=== PATIENT | female | born 1965 | race African-American/Black ===

== ENCOUNTER 2016-12-13 16:14 | Emergency (ER) | payer BC, OTHER ==
[2016-12-13 17:06] VITALS: BP 152/71
[2016-12-13] MEDS ORDERED: Albuterol/Ipratropium NEB.SOL* Albuterol 2.5 MG/Ipratropium 0.5 MG 3 ML INH ONE (17:30)
--- NOTE | 2016-12-13 17:30 | UC ---
Throat Pain/Nasal Javier HPI - HPI Summary HPI Summary: complaint of nasal congestion and cough that started approx 7 days ago productive cough with thick sputum coughing which is worse at night sometimes she hears wheezing at night bilateral ear pain sore throat denies fever but has had chills taking mucinex without much relief - History of Current Complaint Chief Complaint: UCRespiratory Stated Complaint: UPPER RESPIRATORY COMPLAINT Time Seen by Provider: 12/13/16 17:20 Hx Obtained From: Patient Hx Last Menstrual Period: 2005 - Allergies/Home Medications Allergies/Adverse Reactions: Allergies Allergy/AdvReac Type Severity Reaction Status Date / Time Adhesive Tape Allergy Intermediate Rash Verified 12/13/16 17:06 Lisinopril AdvReac Intermediate Coughing Verified 12/13/16 17:06 PMH/Surg Hx/FS Hx/Imm Hx Previously Healthy: Yes Endocrine History Of: Reports: Diabetes - type 2--diet controlled., Thyroid Disease - Slightly enlarged -goiter, Dyslipidemia Denies: Hyperthyroidism, Hypothyroidism Cardiovascular History Of: Reports: Hypertension - on meds Denies: Cardiac Disorders - high cholesterol, Pacemaker/ICD, Myocardial Infarction, Congestive Heart Failure, Atrial Fibrillation, Deep Vein Thrombosis , Bleeding Disorders Respiratory History Of: Denies: COPD, Asthma, Bronchitis, Pneumonia, Pulmonary Embolism GI/ History Of: Denies: Gastroesophageal Reflux, Ulcer, Gastrointestinal Bleed, Gall Bladder Disease, Kidney Stones, Diverticulitis, Renal Disease, Urosepsis Neurological History Of: Denies: TIA, CVA, Dementia, Seizures, Migraine Psychological History Of: Reports: Anxiety - occassionally, Depression - No medications. Denies: Bipolar Disorder, Schizophrenia, Post Traumatic Stress Disorder Cancer History Of: Denies: Lung Cancer, Colorectal Cancer, Breast Cancer, Prostate Cancer, Cervical Cancer Other History Of: Negative For: HIV, Hepatitis B, Hepatitis C, Anticoagulant Therapy - Surgical History Surgical History: Yes Surgery Procedure, Year, and Place: C section x 2, Hand Surgery x 2: L ligaments and Rt HAND tendon repair, Gastric Banding 2005, Hysterectomy 2007. left shoulder sx 2015 - Family History Known Family History: Positive: Cardiac Disease, Hypertension, Diabetes - Social History Occupation: Employed Full-time Lives: With Family Alcohol Use: None Substance Use Type: None Substance Use Comment - Amount & Last Used: 16 Smoking Status (MU): Never Smoked Tobacco Type: Cigarettes Length of Time of Smoking/Using Tobacco: SMOKED FOR ~1 MONTH IN THE '90S Have You Smoked in the Last Year: No - Immunization History Most Recent Influenza Vaccination: refuses Most Recent Tetanus Shot: up to date Most Recent Pneumonia Vaccination: refuses Vaccination Up to Date: Yes Review of Systems Constitutional: Chills Skin: Negative Eyes: Negative ENT: Sore Throat, Ear Ache, Nasal Discharge Respiratory: Cough Cardiovascular: Negative Gastrointestinal: Negative Genitourinary: Negative Motor: Negative Neurovascular: Negative Musculoskeletal: Negative Neurological: Headache Psychological: Negative All Other Systems Reviewed And Are Negative: Yes Physical Exam Triage Information Reviewed: Yes Appearance: No Pain Distress, Well-Nourished, Obese Vital Signs: Initial Vital Signs Temp 98.1 F 12/13/16 17:01 Pulse 83 12/13/16 17:01 Resp 20 12/13/16 17:01 BP 152/71 12/13/16 17:01 Pulse Ox 100 12/13/16 17:01 Vital Signs Reviewed: Yes Eyes: Positive: Conjunctiva Clear ENT: Positive: Pharyngeal erythema, Nasal congestion, Nasal drainage, TM bulging , Other: - frontal sinus tenderness. Negative: TM red Neck: Positive: No Lymphadenopathy Respiratory: Positive: No respiratory distress, No accessory muscle use, Rhonchi - LLL, Wheezing - throughout Cardiovascular: Positive: RRR, No Murmur, Pulses Normal Abdomen Description: Positive: Nontender, Soft Bowel Sounds: Positive: Present Musculoskeletal: Positive: No Edema Neurological: Positive: Alert Psychological Exam: Normal Skin Exam: Normal Re-Evaluation - Re-Evaluation First Eval Re-Evaluation Time: 18:00 Change: Improved - less wheezing Throat Pain/Nasal Course/Dx - Differential Dx/Diagnosis Differential Diagnosis/HQI/PQRI: Sinusitis, URI, Other - bronchitis Provider Diagnoses: bronchitis Discharge - Discharge Plan Condition: Stable Disposition: HOME Prescriptions: Albuterol HFA INHALER* [Ventolin HFA Inhaler*] 2 puff INH Q4H PRN #1 mdi PRN Reason: Cough Azithromycin TAB* [Zithromax TAB (Z-KATHRIN) 250 mg #6 tabs] 2 tab PO .TODAY, THEN 1 DAILY #1 kathrin Patient Education Materials: Acute Bronchitis (ED) Referrals: Ashlee Negron MD [Primary Care Provider] - Additional Instructions: Please take antibiotic as directed Use your albuterol inhaler every 4-6 hours when needed for wheezing, shortness of breath or uncontrolled coughing. Increase fluids and rest Take acetaminophen or ibuprofen for fever or pain Please review your discharge instructions. If your symptoms do not improve please call your primary care provider or return to urgent care.
== END 2016-12-13 18:14 | disposition home or self-care (01) ==
LOC: UCEAST 16:14
DX: J40 Bronchitis, not specified as acute or chronic (principal); Z98.84 Bariatric surgery status
CPT/HCPCS: 99212; A9270-GY; G0463

== ENCOUNTER 2017-03-12 21:11 | Emergency (ER) | payer BC, OTHER ==
[2017-03-12 21:53] VITALS: BP 153/81
--- NOTE | 2017-03-12 22:15 | UC ---
Dental HPI - HPI Summary HPI Summary: "C/o left upper dental pain x1 week. " has had a dental infection before and thinks she has one again today. she was in [place] today singing. left cheek is swollen. no fevers. no chills. has a dentist in [place]. - History of Current Complaint Chief Complaint: UCDentalProblem Stated Complaint: DENTAL Time Seen by Provider: 03/12/17 22:14 Hx Last Menstrual Period: 2005 - Allergies/Home Medications Allergies/Adverse Reactions: Allergies Allergy/AdvReac Type Severity Reaction Status Date / Time Adhesive Tape Allergy Intermediate Rash Verified 03/12/17 21:40 Lisinopril AdvReac Intermediate Coughing Verified 03/12/17 21:40 Home Medications: Home Medications Acetaminophen TAB* [Tylenol TAB*] 650 mg PO ONCE PRN 03/12/17 [History Confirmed 03/12/17] Ibuprofen TAB* [Motrin TAB* 800 MG] 800 mg PO ONCE PRN 03/12/17 [History Confirmed 03/12/17] Naproxen TAB* [Naprosyn 250 mg TAB*] 500 mg PO ONCE PRN 03/12/17 [History Confirmed 03/12/17] PMH/Surg Hx/FS Hx/Imm Hx Previously Healthy: Yes Endocrine History: Diabetes Cardiovascular History: Hypertension Other History Of: Negative For: HIV, Hepatitis B, Hepatitis C, Anticoagulant Therapy - Surgical History Surgical History: Yes Surgery Procedure, Year, and Place: C section x 2, Hand Surgery x 2: L ligaments and Rt HAND tendon repair, Gastric Banding 2005, Hysterectomy 2007. left shoulder sx 2015 - Family History Known Family History: Positive: Cardiac Disease, Hypertension, Diabetes - Social History Alcohol Use: None Substance Use Type: None Substance Use Comment - Amount & Last Used: 16 Smoking Status (MU): Never Smoked Tobacco Type: Cigarettes Length of Time of Smoking/Using Tobacco: SMOKED FOR ~1 MONTH IN THE '90S Have You Smoked in the Last Year: No - Immunization History Most Recent Influenza Vaccination: refuses Most Recent Tetanus Shot: up to date Most Recent Pneumonia Vaccination: refuses Vaccination Up to Date: Yes Review of Systems Constitutional: Negative Skin: Negative Eyes: Negative ENT: Dental Pain Respiratory: Negative Cardiovascular: Negative Gastrointestinal: Negative Genitourinary: Negative Motor: Negative Neurovascular: Negative Musculoskeletal: Negative Neurological: Negative Psychological: Negative All Other Systems Reviewed And Are Negative: Yes Physical Exam Triage Information Reviewed: Yes Appearance: Well-Appearing, No Pain Distress, Well-Nourished Vital Signs: Initial Vital Signs Temp 98.6 F 03/12/17 21:43 Pulse 83 03/12/17 21:43 Resp 16 03/12/17 21:43 BP 153/81 03/12/17 21:43 Pulse Ox 99 03/12/17 21:43 Vital Signs Reviewed: Yes Eye Exam: Normal ENT Exam: Other - mild-mod generalized swelling of left cheek. ENT: Positive: Pharynx normal, TMs normal. Negative: Pharyngeal erythema Dental: Positive: Abscess @ - left 2nd to last molar. Negative: Cervical Lymphadenopathy Neck exam: Normal Neck: Positive: Supple, Nontender, No Lymphadenopathy Respiratory Exam: Normal Respiratory: Positive: Lungs clear, Normal breath sounds Cardiovascular Exam: Normal Cardiovascular: Positive: RRR, No Murmur, Pulses Normal Abdominal Exam: Normal Abdomen Description: Positive: Soft Musculoskeletal Exam: Normal Neurological Exam: Normal Psychological Exam: Normal Skin Exam: Normal Dental Complaint Course/Dx - Course Course Of Treatment: make sure to take a probiotic every day while on the abx to prevent c diff. - Differential Dx/Diagnosis Differential Diagnosis/Dx: Dental Abscess, Dental Caries Provider Diagnoses: left upper molar dental abscess Discharge - Discharge Plan Condition: Stable Disposition: HOME Prescriptions: Amoxicillin (*) [Amoxicillin 875 MG (*)] 875 mg PO BID #20 tab Patient Education Materials: Dental Abscess (ED) Referrals: Ashlee Negron MD [Primary Care Provider] - Additional Instructions: Follow up with a dentist in 2-3 days. You should not be taking ibuprofen and naproxyn at the same time.
[2017-03-12] MEDS ORDERED: Amoxicillin CAP* 500 MG PO ONE (22:19)
== END 2017-03-12 22:37 | disposition home or self-care (01) ==
LOC: UCCORT 21:11
DX: K04.7 Periapical abscess without sinus (principal); E11.9 Type 2 diabetes mellitus without complications; I10 Essential (primary) hypertension; Z98.84 Bariatric surgery status; Z90.710 Acquired absence of both cervix and uterus; Z88.8 Allergy status to other drugs, medicaments and biological substances; Z91.048 Other nonmedicinal substance allergy status; Z87.891 Personal history of nicotine dependence
CPT/HCPCS: 99212; A9270-GY; G0463

== ENCOUNTER 2017-04-13 18:39 | Emergency (ER) | payer BC ==
[2017-04-13 19:47] VITALS: BP 126/78
--- NOTE | 2017-04-13 20:06 | UC ---
Lower Extremity/Ankle HPI - HPI Summary HPI Summary: 4-5 DAYS OF PAIN TOP OF LEFT FOOT. NO TRAUMA. HAS UNCONTROLLED DM AND IS ON GABAPENTIN FOR NEUROPATHY BUT PT STATES THAT THIS FEELS DIFFERENT. PAIN WITH AMBULATION. PAIN RADIATES UP HER LEG. DROPPED A 2 L BOTTLE OF POP ON HER FOOT A FEW DAYS BEFORE ONSET OF SX. - History of Current Complaint Chief Complaint: UCLowerExtremity Stated Complaint: FOOT PAIN Time Seen by Provider: 04/13/17 19:59 Hx Obtained From: Patient Hx Last Menstrual Period: hysterectomy 2007 Onset/Duration: Gradual Onset, Lasting Days, Still Present Severity Initially: Moderate Severity Currently: Moderate Pain Intensity: 7 Pain Scale Used: 0-10 Numeric Aggravating Factor(s): Ambulation Alleviating Factor(s): Rest Able to Bear Weight: Yes - Allergies/Home Medications Allergies/Adverse Reactions: Allergies Allergy/AdvReac Type Severity Reaction Status Date / Time Adhesive Tape Allergy Intermediate Rash Verified 04/13/17 19:47 Lisinopril AdvReac Intermediate Coughing Verified 04/13/17 19:47 Home Medications: Home Medications Atorvastatin* [Lipitor*] 40 mg PO 1700 04/13/17 [History Confirmed 04/13/17] Gabapentin CAP(*) [Neurontin 400 mg CAP(*)] 800 mg PO BID 04/13/17 [History Confirmed 04/13/17] PMH/Surg Hx/FS Hx/Imm Hx - Additional Past Medical History Additional PMH: SLEEP APNEA Endocrine History: Diabetes, Dyslipidemia Cardiovascular History: Hypertension Other History Of: Negative For: HIV, Hepatitis B, Hepatitis C, Anticoagulant Therapy - Surgical History Surgical History: Yes Surgery Procedure, Year, and Place: C section x 2, Hand Surgery x 2: L ligaments and Rt HAND tendon repair, Gastric Banding 2005, Hysterectomy 2007. left shoulder sx 2016 - Family History Known Family History: Positive: Cardiac Disease, Hypertension, Diabetes - Social History Alcohol Use: None Substance Use Type: None Substance Use Comment - Amount & Last Used: 16 Smoking Status (MU): Never Smoked Tobacco Type: Cigarettes Length of Time of Smoking/Using Tobacco: SMOKED FOR ~1 MONTH IN THE '90S Have You Smoked in the Last Year: No - Immunization History Most Recent Influenza Vaccination: refuses Most Recent Tetanus Shot: up to date Most Recent Pneumonia Vaccination: refuses Vaccination Up to Date: Yes Review of Systems Constitutional: Negative Skin: Negative Respiratory: Negative Cardiovascular: Negative Gastrointestinal: Negative Musculoskeletal: Arthralgia All Other Systems Reviewed And Are Negative: Yes Physical Exam Triage Information Reviewed: Yes Appearance: Well-Appearing, No Pain Distress, Well-Nourished, Obese Vital Signs: Initial Vital Signs Temp 97.9 F 04/13/17 19:43 Pulse 75 04/13/17 19:43 Resp 20 04/13/17 19:43 BP 126/78 04/13/17 19:43 Pulse Ox 100 04/13/17 19:43 Vital Signs Reviewed: Yes Eyes: Positive: Conjunctiva Clear ENT: Positive: Hearing grossly normal Neck: Positive: Supple Respiratory: Positive: No respiratory distress, No accessory muscle use Cardiovascular: Positive: Pulses Normal Abdomen Description: Positive: Soft Musculoskeletal: Positive: ROM Intact, No Edema, Other: - TTP BRIDGE OF LEFT FOOT Neurological: Positive: Alert Psychological: Positive: Age Appropriate Behavior Skin: Negative: rashes Diagnostics - Radiology LEFT FOOT XRAY Xray Interpretation: Positive (See Comments) - Probable stress related change involving the second metatarsal Radiology Interpretation Completed By: Radiologist Lower Extremity Course/Dx - Differential Dx/Diagnosis Provider Diagnoses: LEFT FOOT PAIN/FALLEN ARCHES Discharge - Discharge Plan Condition: Stable Disposition: HOME Patient Education Materials: Foot Sprain (ED) Referrals: Ashlee Negron MD [Primary Care Provider] - If Needed Additional Instructions: XRAY SHOWS: Probable stress related change involving the second metatarsal. NO FRACTURE Fallen arches - a change in the tibial tendon that normally provides stability for walking and support for the foot's arch. Ongoing pain along the inside of the foot and ankle Injuries to this tendon are among the most common foot and ankle problems. They may occur over time with wear and tear, with overuse during high-impact sports, or during a fall. Obesity, diabetes, high blood pressure and steroid injections can increase the risk of tibial tendon dysfunction. Fallen arches are more common in adults over 40, and affect women more often than men. Symptoms include swelling on the inside of the ankle, pain that worsens with activity or walking on uneven ground, difficulty walking or standing for long periods and, eventually, pain on the outside of the ankle due to the heel bone shifting outward. Diagnosis requires a physical exam and often includes X-rays or other imaging. Treatment depends on the extent of the tendon problem. The goal is to reduce pain, stabilize the foot and prevent additional changes to the foot's integrity. Conservative treatment choices include: -Stopping or decreasing activities that aggravate foot pain. -Applying cold packs to the painful area three or four times a day for up to 20 minutes each time. -Taking nonsteroidal anti-inflammatory medications, such as ibuprofen (Advil , Motrin IB, others) or naproxen (Aleve, others) to reduce pain and inflammation. -Losing weight and participating in low-impact physical activities. -Wearing a short leg cast or walking boot to stabilize the tendon. -Wearing orthotics to control the foot position. PODIATRY IN [facility] Dr. Augusto Morgan [address] [place] [address] [place]. Please call his office at [phone] to make an appointment to be seen Dr. Pascual Morris. Please call his office at [phone] to make an appointment to be seen
--- NOTE | 2017-04-13 20:40 | RAD ---
Indication: Left foot pain. 3 views of left foot demonstrates periosteal reaction involving the second metatarsal. Stress-related change cannot BE excluded. No fracture is noted. IMPRESSION: Probable stress related change involving the second metatarsal.
== END 2017-04-13 20:59 | disposition home or self-care (01) ==
LOC: UCEAST 18:39
DX: M21.42 Flat foot [pes planus] (acquired), left foot (principal); M79.672 Pain in left foot; E11.9 Type 2 diabetes mellitus without complications; I10 Essential (primary) hypertension
CPT/HCPCS: 99212; G0463

== ENCOUNTER 2017-04-15 15:40 | Emergency (ER) | payer BC ==
[2017-04-15 15:50] VITALS: BP 131/74
--- NOTE | 2017-04-15 15:55 | UC ---
Lower Extremity/Ankle HPI - HPI Summary HPI Summary: 51 year old presents with complains of left plantar fasciitis pain. A Xray of her left foot was done at [facility] and was negative for fractures per patient. - History of Current Complaint Chief Complaint: UCLowerExtremity Stated Complaint: RE-CHECK LEFT FOOT Time Seen by Provider: 04/15/17 15:51 Hx Last Menstrual Period: hysterectomy 2007 Onset/Duration: Gradual Onset - Allergies/Home Medications Allergies/Adverse Reactions: Allergies Allergy/AdvReac Type Severity Reaction Status Date / Time Adhesive Tape Allergy Intermediate Rash Verified 04/15/17 15:50 Lisinopril AdvReac Intermediate Coughing Verified 04/15/17 15:50 PMH/Surg Hx/FS Hx/Imm Hx Other History Of: Negative For: HIV, Hepatitis B, Hepatitis C, Anticoagulant Therapy - Surgical History Surgical History: Yes Surgery Procedure, Year, and Place: C section x 2, Hand Surgery x 2: L ligaments and Rt HAND tendon repair, Gastric Banding 2005, Hysterectomy 2007. left shoulder sx 2015 - Family History Known Family History: Positive: Cardiac Disease, Hypertension, Diabetes - Social History Alcohol Use: None Substance Use Type: None Substance Use Comment - Amount & Last Used: 16 Smoking Status (MU): Never Smoked Tobacco Type: Cigarettes Length of Time of Smoking/Using Tobacco: SMOKED FOR ~1 MONTH IN THE '90S Have You Smoked in the Last Year: No - Immunization History Most Recent Influenza Vaccination: refuses Most Recent Tetanus Shot: up to date Most Recent Pneumonia Vaccination: refuses Vaccination Up to Date: Yes Review of Systems Constitutional: Negative Skin: Negative Eyes: Negative ENT: Negative Respiratory: Negative Cardiovascular: Negative Gastrointestinal: Negative Genitourinary: Negative Motor: Negative Neurovascular: Negative Musculoskeletal: Myalgia, Other: - LEFT PLANTAR LIGAMENT PAIN Neurological: Negative Psychological: Negative All Other Systems Reviewed And Are Negative: Yes Physical Exam Triage Information Reviewed: Yes Vital Signs: Initial Vital Signs Temp 36.9 C 04/15/17 15:43 Pulse 73 04/15/17 15:43 Resp 16 04/15/17 15:43 BP 131/74 04/15/17 15:43 Pulse Ox 99 04/15/17 15:43 Eye Exam: Normal ENT Exam: Normal Dental Exam: Normal Neck exam: Normal Neck: Positive: 1 Respiratory Exam: Normal Cardiovascular Exam: Normal Abdominal Exam: Normal Musculoskeletal: Positive: Other: - LEFT PLANTAR LIGAMENT TENDERNESS Neurological Exam: Normal Psychological Exam: Normal Skin Exam: Normal Lower Extremity Course/Dx - Differential Dx/Diagnosis Provider Diagnoses: LEFT PLANTAR LIGAMENT INFLAMATION Discharge - Discharge Plan Condition: Stable Disposition: HOME Prescriptions: Methylprednisolone [Medrol Dosepak 4 MG*] 4 mg PO .SEE KATHRIN INSTRUCTION #21 tab Patient Education Materials: Plantar Fasciitis Exercises (GEN), Plantar Fasciitis (ED) Referrals: Ashlee Negron MD [Primary Care Provider] - If Needed
== END 2017-04-15 16:10 | disposition home or self-care (01) ==
LOC: UCCORT 15:40
DX: M72.2 Plantar fascial fibromatosis (principal); Z88.8 Allergy status to other drugs, medicaments and biological substances
CPT/HCPCS: 99212; G0463

== ENCOUNTER 2017-06-16 21:10 | Emergency (ER) | payer BC ==
[2017-06-16 21:30] VITALS: BP 144/68
--- NOTE | 2017-06-16 21:56 | UC ---
Abdominal Pain Female HPI - HPI Summary HPI Summary: 51 yo female with epigastric and LUQ abd pain x about 4 days constant no n/v a couple of episodes of diarrhea no f/c has chronic left pectorial muscle tightness for which she goes to PT, it has been unchanged no f/c no cough or shortness of breath known gallstones - History of Current Complaint Chief Complaint: UCAbdominalPain Stated Complaint: ABD & CHEST/SHOULDER PAIN Time Seen by Provider: 06/16/17 21:39 Hx Obtained From: Patient Hx Last Menstrual Period: hysterectomy 2007 Onset/Duration: Gradual Onset, Lasting Days Timing: Constant Severity Initially: Mild Severity Currently: Moderate Pain Intensity: 4 Pain Scale Used: 0-10 Numeric Location: Discrete At: LUQ, Epigastric Radiates: No Character: Burning, Cramping Aggravating Factor(s): Nothing Alleviating Factor(s): Nothing Associated Signs and Symptoms: Positive: Chest Pain - left pectoral tightness, Diarrhea - x2. Negative: Diaphoresis, Fever, Cough, Dizzy, Back Pain, Constipation, Blood in Stool, Urinary Symptoms, Decreased Appetite, Vaginal Bleeding, Vaginal Discharge, Nausea, Vomiting Allergies/Adverse Reactions: Allergies Allergy/AdvReac Type Severity Reaction Status Date / Time Adhesive Tape Allergy Intermediate Rash Verified 06/16/17 21:17 Lisinopril AdvReac Intermediate Coughing Verified 06/16/17 21:17 Home Medications: Home Medications Gabapentin CAP(*) [Neurontin 300 CAP(*)] 300 mg PO DAILY 06/16/17 [History Confirmed 06/16/17] metFORMIN* [Glucophage 500 MG TAB *] 500 mg PO BID 06/16/17 [History Confirmed 06/16/17] PMH/Surg Hx/FS Hx/Imm Hx Previously Healthy: Yes Endocrine History: Diabetes, Dyslipidemia Cardiovascular History: Hypertension Other History Of: Negative For: HIV, Hepatitis B, Hepatitis C, Anticoagulant Therapy - Surgical History Surgical History: Yes Surgery Procedure, Year, and Place: C section x 2, Hand Surgery x 2: L ligaments and Rt HAND tendon repair, Gastric Banding 2005, Hysterectomy 2007. left shoulder sx 2015 - Family History Known Family History: Positive: Cardiac Disease, Hypertension, Diabetes - Social History Alcohol Use: None Substance Use Type: None Substance Use Comment - Amount & Last Used: 16 Smoking Status (MU): Never Smoked Tobacco Type: Cigarettes Length of Time of Smoking/Using Tobacco: SMOKED FOR ~1 MONTH IN THE '90S Have You Smoked in the Last Year: No - Immunization History Most Recent Influenza Vaccination: refuses Most Recent Tetanus Shot: up to date Most Recent Pneumonia Vaccination: refuses Vaccination Up to Date: Yes Review of Systems Constitutional: Negative Skin: Negative Eyes: Negative ENT: Negative Respiratory: Negative Cardiovascular: Chest Pain Gastrointestinal: Abdominal Pain, Diarrhea Genitourinary: Negative Motor: Negative Neurovascular: Negative Musculoskeletal: Negative Neurological: Negative Psychological: Negative All Other Systems Reviewed And Are Negative: Yes Physical Exam Triage Information Reviewed: Yes Appearance: Well-Appearing, No Pain Distress, Well-Nourished Vital Signs: Initial Vital Signs Temp 97.8 F 06/16/17 21:14 Pulse 92 06/16/17 21:14 Resp 16 06/16/17 21:14 BP 144/68 06/16/17 21:14 Pulse Ox 100 06/16/17 21:14 Vital Signs Reviewed: Yes Eyes: Positive: Conjunctiva Clear ENT: Positive: Hearing grossly normal. Negative: Nasal congestion, Nasal drainage, Trismus, Muffled/hoarse voice Neck: Positive: Supple, Nontender, No Lymphadenopathy Respiratory: Positive: Lungs clear, Normal breath sounds, No respiratory distress, No accessory muscle use Cardiovascular: Positive: RRR, No Murmur Abdomen Description: Negative: Nontender - tender epigastrium, Distended, Guarding, Hepatomegaly Bowel Sounds: Positive: Present Musculoskeletal: Positive: ROM Intact, No Edema Neurological: Positive: Alert Psychological Exam: Normal Skin Exam: Normal Diagnostics - EKG Cardiac Rate: NL Cardiac Rhythm: Sinus: Normal Ectopy: None ST Segment: Normal Abd Pain Female Course/Dx - Differential Dx/Diagnosis Provider Diagnoses: epigastric abdominal pain of uncertain cause. ventral hernia Discharge - Discharge Plan Condition: Stable Disposition: HOME Prescriptions: Famotidine TAB* [Pepcid 20 MG TAB*] 20 mg PO DAILY #14 tab Patient Education Materials: Abdominal Pain (ED), Ventral Hernia (ED) Referrals: Waldemar Recinos MD [Medical Doctor] - As Soon As Possible Ashlee Negron MD [Primary Care Provider] - Additional Instructions: [place] 2 tablespoons every 2 hours while awake for 2-3 days I suggest you call your surgeon some times lap bands can cause stomach issues you also appear to have a ventral hernia TO ER FOR NEW OR WORSENING SYMPTOMS
[2017-06-16] MEDS ORDERED: Famotidine TAB* 20 MG PO ONE (22:12)
== END 2017-06-16 22:30 | disposition home or self-care (01) ==
LOC: UCEAST 21:10
DX: R10.13 Epigastric pain (principal); K43.9 Ventral hernia without obstruction or gangrene; R10.12 Left upper quadrant pain; R19.7 Diarrhea, unspecified; K80.20 Calculus of gallbladder without cholecystitis without obstruction; E11.9 Type 2 diabetes mellitus without complications; Z79.84 Long term (current) use of oral hypoglycemic drugs; E78.5 Hyperlipidemia, unspecified; I10 Essential (primary) hypertension; Z98.84 Bariatric surgery status; Z90.710 Acquired absence of both cervix and uterus; Z88.8 Allergy status to other drugs, medicaments and biological substances
CPT/HCPCS: 93005; 99212; A9270-GY; G0463

== ENCOUNTER 2017-07-06 10:14 | Day surgery (SDC) | payer BC, OTHER ==
--- NOTE | 2017-06-17 07:35 | HP ---
PREOPERATIVE HISTORY AND PHYSICAL: DATE OF OFFICE VISIT: 06/16/17 DATE OF SURGERY: 07/06/17 ATTENDING SURGEON: Dr. Daron Poole * (DICTATED BY DELANO SEXTON) PROCEDURE: Left shoulder excision of distal clavicle open. CHIEF COMPLAINT: Left shoulder pain. HISTORY OF PRESENT ILLNESS: Mindy is a 51-year-old female who presents to the clinic, status post left shoulder rotator cuff debridement and distal clavicle excision that was performed on 10/07/16. The patient states that she continues to have pain and grinding along the AC joint. She has failed conservative measures and therefore agreed to undergo a left shoulder excision distal clavicle open with Dr. Poole on 07/06/17. PAST MEDICAL HISTORY: Diabetes, hypertension, thyroid, goiter and obstructive sleep apnea. PAST SURGICAL HISTORY: Hysterectomy, x2, left shoulder surgery, right hand surgery, left arm surgery, and a lap band surgery. Denies prior complications with anesthesia. MEDICATIONS: 1. Metoprolol. 2. Triamterene. 3. Aspirin children. 4. Methylprednisolone 4 mg. 5. Naproxen 500 mg as needed for pain. 6. Fluticasone 50 mg per ACT. 7. Losartan potassium 25 mg 1 by mouth every day. 8. Atorvastatin 1 by mouth every day. 10. Metformin 1000 mg 1 by mouth twice a day. ALLERGIES: No known drug allergies. FAMILY HISTORY: Positive for mother with diabetes, COPD and cancer. Sister with cancer and father with congestive heart failure. SOCIAL HISTORY: Patient denies tobacco use, alcohol use, or illegal drug use. REVIEW OF SYSTEMS: A 14-point review of systems was reviewed with the patient, positive for current complaint. Otherwise negative. Denies chest pain, shortness of breath, history of bleeding disorder, history of DVT or PE, or history of hepatitis or HIV. PHYSICAL EXAMINATION GENERAL: Well-developed, well-nourished 51-year-old female, in no acute distress. Alert and oriented x3. Appropriate mood and affect. VITAL SIGNS: Height 66, weight 302, blood pressure 130/80, BMI 48.7. HEENT: Normocephalic, atraumatic. PERRLA. NECK: Supple. Throat clear. LUNGS: Clear to auscultation bilaterally. No wheezing, rhonchi or rales. CARDIO: Regular rate and rhythm, S1 and S2. No murmurs, gallops or rubs. No edema. ABDOMEN: Positive bowel sounds, soft, nontender. NEUROLOGIC: Alert and oriented x3. Cranial nerves are grossly intact. Sensation is intact to light touch. MUSCULOSKELETAL: Left upper extremity incision is well healed, tenderness over the AC joint, forward flexion 130, abduction 90, external rotation 35, internal rotation to the sacrum. +2 radial pulse. Sensation is intact to light touch distally. DIAGNOSTIC STUDIES: Multi-view x-rays of the left shoulder revealed residual bony fragment superiorly over the AC joint. IMPRESSION: Left shoulder AC joint arthritis. PLAN: The patient is scheduled to undergo a left shoulder excision distal clavicle open with Dr. Poole on . She will return to the office in 10 to 14 days for followup and suture removal. Percocet will be used for postop pain management. DEALNO SEXTON [id number]/[facility] #: [id number] [facility] CENTERMelissa
[~2017-07-06 10:14] MED LIST: Buffered Lidocaine 0.9% SYRIN* 5 ML/SYR SYRINGE INTRADERM ONE; Famotidine IV* 10 MG/ML 2 ML (20 mg) IV ONE
[2017-07-06] MEDS ORDERED: Midazolam* 1 MG/ML 5 ML VIAL (5 MG) ONE (10:26)
[2017-07-06] MEDS ORDERED: fentaNYL* 50 MCG/ML 2 ML VIAL (100 MCG VIAL) ONE ×2 (10:26→11:49)
[2017-07-06] MEDS ORDERED: Famotidine IV* 10 MG/ML 2 ML (20 mg) ONE (10:29)
[2017-07-06] MEDS ORDERED: ceFAZolin 1 GM ADVAN(*) 1 GM ADDV.VIAL IVPB ONE (10:29)
[2017-07-06] MEDS ORDERED: ceFAZolin 2 GM PREMIX (*) 50 ML IVPB ONE (10:30)
[2017-07-06] MEDS ORDERED: Buffered Lidocaine 0.9% SYRIN* 5 ML/SYR SYRINGE ONE (10:30)
[2017-07-06] MEDS ORDERED: Propofol* 10 MG/ML 20 ML BTL IV PUSH ONE ×2 (11:28→11:57)
[2017-07-06] MEDS ORDERED: Lidocaine 2% PF * 5 ML VIAL ONE (11:58)
[2017-07-06] MEDS ORDERED: Ondansetron INJ* 2 MG/ML VIAL ONE (11:58)
[2017-07-06] MEDS ORDERED: Dexamethasone IV* 4 MG/ML 1 ML (4 MG) ONE (11:58)
[2017-07-06] MEDS ORDERED: DiMENhydriNATE IV* 50 MG/ML VIAL ONE (11:58)
[2017-07-06] MEDS ORDERED: Ketorolac INJ* 30 MG/ML 1 ML VIAL ONE (11:58)
[2017-07-06] MEDS ORDERED: Bupivacaine 0.25% SDV* 30 ML ONE (11:59)
[2017-07-06] MEDS ORDERED: Acetaminophen TAB* 325 MG PO PRN (12:06)
[2017-07-06] MEDS ORDERED: HYDROmorphone INJ* 1 MG/ML CARPUJECT SYRINGE IV PRN (12:06)
[2017-07-06] MEDS ORDERED: DiMENhydriNATE IV* 50 MG/ML VIAL IV PUSH PRN (12:06)
[2017-07-06] MEDS ORDERED: oxyCODONE TAB* 5 MG TAB PO PRN (12:06)
[2017-07-06 13:32] VITALS: BP 125/63
--- NOTE | 2017-07-07 01:48 | OP ---
CC: PCP* OPERATIVE REPORT: DATE OF OPERATION: 07/06/17 - LOCATED WITHIN [facility] DATE OF : 63 SURGEON: Daron Poole MD INSTRUMENTATION DESIGNER: DELANO Bhagat An medical office assistant is needed for the entirety of the case to help with positioning, retraction and utilized throughout all portion of the case. ANESTHESIOLOGIST: Dr. Varner. ANESTHESIA: General. PRE-OP DIAGNOSIS: Left AC joint arthritis. POST-OP DIAGNOSIS: Left AC joint arthritis. OPERATIVE PROCEDURE: Left open distal clavicle excision. COMPLICATIONS: None. ESTIMATED BLOOD LOSS: 50. SPECIMENS: Distal bone. INDICATIONS: Mindy was seen as a 51-year-old female who had sustained a work- related to injury in 2010. She has had persistent pain. She underwent previous arthroscopy with excision distal clavicle, but it was not a complete resection. She continued to have persistent pain. We talked about options and she has elected to proceed with open distal clavicle excision. Risks and benefits were discussed at length to include, but are not limited to bleeding, infection, damage to nerves, vessels, surrounding structures, would nonhealing, persistent pain, need for further surgery, scarring, stiffness and incomplete relief of symptoms, risks of anesthesia. She verbalized understanding. DESCRIPTION OF PROCEDURE: The patient was greeted in the preoperative area by the attending surgeon. The correct extremity was marked and consent was confirmed. The patient was then transferred to the operating suite, where she was placed on the operating table. She then underwent general anesthesia with LMA intubation after which the patient was appropriately positioned on the bed in the [facility] chair. The left arm was prepped and draped in the usual sterile fashion beginning with chlorhexidine soap, scrub, and alcohol wipe and a final prep with ChloraPrep. After appropriate surgical pause indicating side, site, procedure, administration of antibiotics, a saber incision made over the distal clavicle. This was made using 15 blade. Soft tissues were carefully dissected. Hemostasis was obtained using electrocautery device. Soft tissues were dissected to find the AC joint capsule, which was then incised longitudinally with flaps for later closure. The end of the clavicle was identified. The previous distal clavicle excision was visualized through. There was abundance scar tissue there that was carefully removed. Approximately 1 cm of the end of the clavicle was measured and at least 1 cm of the distal clavicle was carefully removed. Care was taken to preserve any CC ligaments and to avoid any damage. After it was removed, some soft tissue, the space was assessed and there was adequate resection. My finger was placed into the wound and the shoulder was taken through range of motion. There were no areas of impingement. The wound was copiously irrigated with sterile saline. The wound was closed in layers with the capsule being closed with 0 Vicryl in an interrupted fashion. Subcutaneous tissue was closed with 2-0 Vicryl and the skin with 3-0 nylon. The wound was injected with 0.25% Marcaine plain. Sterile dressings were applied as well as the Cryo/Cuff and the patient was awoken from anesthesia and transferred to the PACU in stable condition. POSTOPERATIVE PLAN: She will be nonweightbearing. She will be discharged on pain medications as well as antibiotics. I will see the patient in 10 to 14 days. She will be range of motion as tolerated. DVT prophylaxis was considered and deferred due to no previous personal or family history. [id number]/[facility] #: [id number] ARIADNA
== END 2017-07-06 13:48 | disposition home or self-care (01) ==
LOC: OR 10:14
PROVIDERS: ATTEND Orthopaedic Surgery
DX: M19.012 Primary osteoarthritis, left shoulder (principal); E11.9 Type 2 diabetes mellitus without complications; Z79.84 Long term (current) use of oral hypoglycemic drugs; E66.01 Morbid (severe) obesity due to excess calories; Z68.43 Body mass index [BMI] 50.0-59.9, adult; G47.33 Obstructive sleep apnea (adult) (pediatric); I10 Essential (primary) hypertension; F41.8 Other specified anxiety disorders
CPT/HCPCS: 88304; 88311; J0690; J1100; J1240; J1885; J2250; J2405; J2704; J3010

== ENCOUNTER 2017-09-02 20:01 | Emergency (ER) | payer MEDICAID, OTHER ==
--- NOTE | 2017-09-02 20:20 | UC ---
Throat Pain/Nasal Javier HPI - HPI Summary HPI Summary: 51 year old female presents with complains of post nasal drip and cough. - History of Current Complaint Stated Complaint: UPPER RESP,JAVIER Time Seen by Provider: 09/02/17 20:19 Hx Obtained From: Patient Hx Last Menstrual Period: hysterectomy 2007 Onset/Duration: Sudden Onset Severity: Moderate - Allergies/Home Medications Allergies/Adverse Reactions: Allergies Allergy/AdvReac Type Severity Reaction Status Date / Time Adhesive Tape Allergy Intermediate Rash Verified 09/02/17 20:22 Lisinopril AdvReac Intermediate Coughing Verified 09/02/17 20:22 PMH/Surg Hx/FS Hx/Imm Hx Previously Healthy: Yes Other History Of: Negative For: HIV, Hepatitis B, Hepatitis C, Anticoagulant Therapy - Surgical History Surgical History: Yes Surgery Procedure, Year, and Place: C section x 2 1986,1984, LEFT AND RIGHT Hand Surgery x 2: L ligaments and Rt HAND tendon repair, Gastric Banding 2005 WITH PORT, Hysterectomy 2007. left shoulder CLAVICLE REPAIR 2015, 06/2017 - Family History Known Family History: Positive: Cardiac Disease, Hypertension, Diabetes - Social History Alcohol Use: None Substance Use Type: None Substance Use Comment - Amount & Last Used: 16 Smoking Status (MU): Never Smoked Tobacco Type: Cigarettes Length of Time of Smoking/Using Tobacco: SMOKED FOR ~1 MONTH IN THE '90S Have You Smoked in the Last Year: No - Immunization History Most Recent Influenza Vaccination: refuses Most Recent Tetanus Shot: up to date Most Recent Pneumonia Vaccination: refuses Vaccination Up to Date: Yes Review of Systems Constitutional: Negative Skin: Negative Eyes: Negative ENT: Sore Throat, Nasal Discharge, Sinus Congestion, Sinus Pain/Tenderness Respiratory: Cough Cardiovascular: Negative Gastrointestinal: Negative Genitourinary: Negative Motor: Negative Neurovascular: Negative Musculoskeletal: Negative Neurological: Negative Psychological: Negative All Other Systems Reviewed And Are Negative: Yes Physical Exam Triage Information Reviewed: Yes Vital Signs Reviewed: Yes Eye Exam: Normal Eyes: Positive: Conjunctiva Inflamed, Discharge ENT: Positive: Pharyngeal erythema, Nasal congestion, Nasal drainage Dental Exam: Normal Neck exam: Normal Neck: Positive: 1 Respiratory: Positive: Rhonchi, Wheezing Cardiovascular Exam: Normal Abdominal Exam: Normal Musculoskeletal Exam: Normal Neurological Exam: Normal Psychological Exam: Normal Skin Exam: Normal Throat Pain/Nasal Course/Dx - Differential Dx/Diagnosis Provider Diagnoses: allergic rhinitis. cough Discharge - Discharge Plan Condition: Stable Disposition: HOME Prescriptions: Azithromyxin JEFE (NF) [Z-Jefe (Zithromax) 250 mg tabs #6] 2 tab PO .TODAY, THEN 1 DAILY #6 tab Guaifenesin-Codeine [Cheratussin AC] 1 teasp PO Q8H PRN #120 ml MDD 15 ml PRN Reason: Cough LoraTADine TAB(NF) [Claritin 10 MG TAB(NF)] 10 mg PO DAILY #30 tab Patient Education Materials: Acute Bronchitis (ED) Referrals: Ashlee Negron MD [Primary Care Provider] -
[2017-09-02 20:22] VITALS: BP 141/73
== END 2017-09-02 20:37 | disposition home or self-care (01) ==
LOC: UCCORT 20:01
DX: J30.9 Allergic rhinitis, unspecified (principal); R05 Cough; Z98.84 Bariatric surgery status; Z90.710 Acquired absence of both cervix and uterus; Z88.8 Allergy status to other drugs, medicaments and biological substances; Z91.048 Other nonmedicinal substance allergy status; Z87.891 Personal history of nicotine dependence
CPT/HCPCS: 99212; G0463

== ENCOUNTER 2017-09-22 15:44 | Emergency (ER) | payer MEDICAID ==
[2017-09-22 16:00] VITALS: BP 175/84
--- NOTE | 2017-09-22 16:09 | UC ---
Neck Pain HPI - HPI Summary HPI Summary: 51 year old female with neck pain. pt states she has had severe muscle spasms in L bicep and has a stiff neck. also states her L hand is numb and tingly. was given flexeril and naproxen at [facility] 09/18/17 but states that it is not working. went to Surgeon dr. Poole 09/20/17 and was given a steroid injection and told to come back within a few weeks. Pain still present and injection did not help. She desires toradol today. No NSAIDs today per patient and no history of GI bleed or kidney concerns. - History of Current Complaint Chief Complaint: UCUpperExtremity Stated Complaint: TINGLY FINGERS,LEFT ARM PAIN Time Seen by Provider: 09/22/17 16:04 Hx Obtained From: Patient Hx Last Menstrual Period: hysterectomy 2008 ?: No Timing: Constant Onset/Duration: Gradual Onset Severity: Severe Aggravating Factors: Movement Alleviating Factors: Nothing Related History: Similar Episode/Dx As:, Previous Neck Injury - Allergies/Home Medications Allergies/Adverse Reactions: Allergies Allergy/AdvReac Type Severity Reaction Status Date / Time Adhesive Tape Allergy Intermediate Rash Verified 09/22/17 16:01 Lisinopril AdvReac Intermediate Coughing Verified 09/22/17 16:01 PMH/Surg Hx/FS Hx/Imm Hx - Additional Past Medical History Additional PMH: Had shoulder surgery left sided 2 times in the past and is comp case. Has nerve pain for night time but not working. Previously Healthy: Yes Endocrine History: Diabetes - A1c 6.3 last, Dyslipidemia Cardiovascular History: Hypertension Other History Of: Negative For: HIV, Hepatitis B, Hepatitis C, Anticoagulant Therapy - Surgical History Surgical History: Yes Surgery Procedure, Year, and Place: C section x 2 1986,1984, LEFT AND RIGHT Hand Surgery x 2: L ligaments and Rt HAND tendon repair, Gastric Banding 2005 WITH PORT, Hysterectomy 2007. left shoulder CLAVICLE REPAIR 2015, 06/2017 - Family History Known Family History: Positive: Cardiac Disease, Hypertension, Diabetes - Social History Occupation: Unemployed Alcohol Use: None Substance Use Type: None Substance Use Comment - Amount & Last Used: 16 Smoking Status (MU): Never Smoked Tobacco Type: Cigarettes Length of Time of Smoking/Using Tobacco: SMOKED FOR ~1 MONTH IN THE '90S Have You Smoked in the Last Year: No - Immunization History Most Recent Influenza Vaccination: refuses Most Recent Tetanus Shot: up to date Most Recent Pneumonia Vaccination: refuses Vaccination Up to Date: Yes Review Of Systems Musculoskeletal: Positive: Arthralgia, Decreased ROM - in all directions, Myalgia Neurological: Positive: Paresthesia All Other Systems Reviewed And Are Negative: Yes Physical Exam Triage Information Reviewed: Yes Appearance: Well-Appearing, Pain Distress - mild Vital Signs: Initial Vital Signs Temp 99.1 F 09/22/17 15:54 Pulse 70 09/22/17 15:54 Resp 18 09/22/17 15:54 BP 175/84 09/22/17 15:54 Pulse Ox 100 09/22/17 15:54 Vital Signs Reviewed: Yes Eye Exam: Normal ENT Exam: Normal Neck exam: Normal Respiratory Exam: Normal Cardiovascular Exam: Normal Musculoskeletal: Positive: No Edema, ROM Limited @ - torticollis position with head tilted laterally to the right. SCM tenderness B/L and shoulder pain diffusely left shoulder with well healed scar present. Neurological Exam: Normal Psychological Exam: Normal Skin Exam: Normal Neck Pain Course/Dx - Course Course Of Treatment: Increase gabapentin for 5-7 days then wean back to original dose. Stop flexeril and start metaxolone. Go to PT tomorrow. F/u with specialist if numbness persists or worsens or develop any weakness. Medrol did not work in the past. No red flags. no injury. she is asking for toradol - Differential Dx/Diagnosis Differential Dx/HQI/PQRI: Arthritis, Sprain, Strain Provider Diagnoses: Muscle spasms and left arm radiculopathy Discharge - Discharge Plan Condition: Good Disposition: HOME Prescriptions: Gabapentin CAP(*) [Neurontin 300 CAP(*)] 300 mg PO TID #21 cap Metaxalone TAB* [Skelaxin TAB*] 800 mg PO TID PRN #21 tab PRN Reason: Spasms Patient Education Materials: Cervical Radiculopathy (ED), Shoulder Pain (ED) Referrals: Ashlee Negron MD [Primary Care Provider] - 4 Days
[2017-09-22] MEDS ORDERED: Ketorolac INJ* 60 MG/2 ML VIAL IM ONE (16:37)
== END 2017-09-22 17:01 | disposition home or self-care (01) ==
LOC: UCCORT 15:44
DX: M62.838 Other muscle spasm (principal); M54.12 Radiculopathy, cervical region
CPT/HCPCS: 96372; 99212; G0463; J1885

== ENCOUNTER 2018-02-27 19:15 | Emergency (ER) | payer BC, OTHER ==
[2018-02-27 20:00] VITALS: BP 132/93
--- NOTE | 2018-02-27 20:13 | UC ---
Lower Extremity/Ankle HPI - HPI Summary HPI Summary: awoke with right ankle pain. just anterior to her lateral ankle, patient has usual swelling it both lower legs, no open areas, n/m/c intact distally, able to weight bear with a limp - History of Current Complaint Hx Obtained From: Patient Hx Last Menstrual Period: hysterectomy 2008 ?: No Onset/Duration: Sudden Onset, Lasting Days - 1 Pain Intensity: 7 Pain Scale Used: 0-10 Numeric Aggravating Factor(s): Standing, Ambulation Alleviating Factor(s): Rest, Elevation Able to Bear Weight: Yes <Roxy Henry - Last Filed: 02/27/18 21:58> <Sheila Winn - Last Filed: 02/28/18 08:51> - History of Current Complaint Chief Complaint: UCLowerExtremity Stated Complaint: RIGHT ANKLE PAIN Time Seen by Provider: 02/27/18 20:08 - Allergies/Home Medications Allergies/Adverse Reactions: Allergies Allergy/AdvReac Type Severity Reaction Status Date / Time Adhesive Tape Allergy Intermediate Rash Verified 09/22/17 16:01 lisinopril Allergy Coughing Verified 02/27/18 19:53 PMH/Surg Hx/FS Hx/Imm Hx Previously Healthy: No Endocrine History: Diabetes, Dyslipidemia Cardiovascular History: Hypertension Other History Of: Negative For: HIV, Hepatitis B, Hepatitis C, Anticoagulant Therapy - Surgical History Surgical History: Yes Surgery Procedure, Year, and Place: C section x 2 1986,1984, LEFT AND RIGHT Hand Surgery x 2: L ligaments and Rt HAND tendon repair, Gastric Banding 2005 WITH PORT, Hysterectomy 2007. left shoulder CLAVICLE REPAIR 2015, 06/2017 - Family History Known Family History: Positive: Cardiac Disease, Hypertension, Diabetes - Social History Occupation: Employed Part-time Lives: With Family Alcohol Use: None Substance Use Type: None Substance Use Comment - Amount & Last Used: 16 Smoking Status (MU): Never Smoked Tobacco Type: Cigarettes Length of Time of Smoking/Using Tobacco: SMOKED FOR ~1 MONTH IN THE '90S Have You Smoked in the Last Year: No - Immunization History Most Recent Influenza Vaccination: refuses Most Recent Tetanus Shot: up to date Most Recent Pneumonia Vaccination: refuses Vaccination Up to Date: Yes <Roxy Henry - Last Filed: 02/27/18 21:58> Review of Systems Constitutional: Negative Skin: Negative Eyes: Negative ENT: Negative Respiratory: Negative Cardiovascular: Negative Gastrointestinal: Negative Genitourinary: Negative Motor: Negative Neurovascular: Negative Musculoskeletal: Arthralgia - right lateral ankle pain Neurological: Negative Psychological: Negative Is Patient Immunocompromised?: No All Other Systems Reviewed And Are Negative: Yes <Roxy Henry - Last Filed: 02/27/18 21:58> Physical Exam Triage Information Reviewed: Yes Appearance: Well-Appearing, Pain Distress, Obese Vital Signs: Initial Vital Signs Temp 98.6 F 02/27/18 19:47 Pulse 96 02/27/18 19:47 Resp 18 02/27/18 19:47 BP 132/93 02/27/18 19:47 Pulse Ox 100 02/27/18 19:47 Vital Signs Reviewed: Yes Eye Exam: Normal Eyes: Positive: Conjunctiva Clear ENT Exam: Normal ENT: Positive: Normal ENT inspection, Hearing grossly normal. Negative: Nasal congestion, Trismus, Muffled voice, Hoarse voice Dental Exam: Normal Neck exam: Normal Neck: Positive: Supple, Nontender, No Lymphadenopathy Respiratory Exam: Normal Respiratory: Positive: Chest non-tender, No respiratory distress, No accessory muscle use Cardiovascular Exam: Normal Cardiovascular: Positive: RRR, Pulses Normal, Brisk Capillary Refill Musculoskeletal Exam: Normal Musculoskeletal: Positive: Strength Intact, ROM Intact, Edema @ - usual bilateral edema Neurological Exam: Normal Neurological: Positive: Alert, Muscle Tone Normal Psychological Exam: Normal Skin Exam: Normal <Roxy Henry - Last Filed: 02/27/18 21:58> Vital Signs: Initial Vital Signs Temp 98.6 F 02/27/18 19:47 Pulse 96 02/27/18 19:47 Resp 18 02/27/18 19:47 BP 132/93 02/27/18 19:47 Pulse Ox 100 02/27/18 19:47 <Sheila Winn - Last Filed: 02/28/18 08:51> Diagnostics - Radiology No standard instances Xray Interpretation: Positive (See Comments) - arthritis, heel spur Radiology Interpretation Completed By: Radiologist <Roxy Henry - Last Filed: 02/27/18 21:58> Lower Extremity Course/Dx - Course Course Of Treatment: petra wrap and came, tylenol/ibuprofen prn follow with pcp - Differential Dx/Diagnosis Provider Diagnoses: right foot arthritis <Roxy Henry - Last Filed: 02/27/18 21:58> Discharge - Sign-Out/Discharge Documenting (check all that apply): Discharge/Admit/Transfer - Billing Disposition and Condition Condition: STABLE Disposition: HOME <Roxy Henry - Last Filed: 02/27/18 21:58> - Billing Disposition and Condition Condition: STABLE Disposition: HOME <Sheila Winn - Last Filed: 02/28/18 08:51> - Discharge Plan Condition: Stable Disposition: HOME Patient Education Materials: Osteoarthritis (ED), Leg Edema (ED) Referrals: Ashlee Negron MD [Primary Care Provider] - If Needed Attestation Statement User Type: Provider - I was available for consult. This patient was seen by the ROSSY. The patient was not presented to, seen by, or examined by me. -Ravinder <Sheila Winn - Last Filed: 02/28/18 08:51>
--- NOTE | 2018-02-27 20:59 | RAD ---
Indication: Lateral aspect RIGHT ankle pain with weightbearing without known injury. Comparison: January 16, 2004 Technique: AP, mortise, and lateral views RIGHT ankle. Report: Diffuse severe soft tissue swelling. Negative for fracture or malalignment. Polyarticular mild osteoarthritis. Small plantar fascia origin bone spur. IMPRESSION: Most significant finding is diffuse severe soft tissue swelling. Mild osteoarthritis. Negative for fracture.
== END 2018-02-27 21:33 | disposition home or self-care (01) ==
LOC: UCCORT 19:15
DX: M19.071 Primary osteoarthritis, right ankle and foot (principal); Z88.8 Allergy status to other drugs, medicaments and biological substances; Z91.048 Other nonmedicinal substance allergy status; E11.9 Type 2 diabetes mellitus without complications; I10 Essential (primary) hypertension; Z87.891 Personal history of nicotine dependence
CPT/HCPCS: 99212; G0463

== ENCOUNTER 2018-03-17 18:06 | Emergency (ER) | payer OTHER ==
[2018-03-17 18:43] VITALS: BP 145/79
--- NOTE | 2018-03-17 19:23 | UC ---
Throat Pain/Nasal Javier HPI - HPI Summary HPI Summary: Patient presents with 10 days of progressive sinus pressure left greater than right. Ear fullness, postnasal drip, sore throat, and fatigue. Patient states she is use Mucinex and her phonates with mild relief. Patient denies fevers but states she feels fatigued. Patient denies vision changes but has a mild frontal headache. No analgesic taken today. Patient with a history of sinus infections and states this feels similar. Patient states her nasal discharge is thick yellow to green. No rashes. No chest pain or shortness of breath. No cough. 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" Pt's medications reviewed this visit - History of Current Complaint Chief Complaint: UCRespiratory Stated Complaint: SINUS AND EAR PAIN Time Seen by Provider: 03/17/18 19:13 Hx Obtained From: Patient Hx Last Menstrual Period: hysterectomy 2007 Severity: Mild Pain Intensity: 0 Cough: Nonproductive - Allergies/Home Medications Allergies/Adverse Reactions: Allergies Allergy/AdvReac Type Severity Reaction Status Date / Time Adhesive Tape Allergy Intermediate Rash Verified 03/17/18 18:35 lisinopril Allergy Coughing Verified 03/17/18 18:35 PMH/Surg Hx/FS Hx/Imm Hx Previously Healthy: Yes Other History Of: Negative For: HIV, Hepatitis B, Hepatitis C, Anticoagulant Therapy - Surgical History Surgical History: Yes Surgery Procedure, Year, and Place: C section x 2 1986,1984, LEFT AND RIGHT Hand Surgery x 2: L ligaments and Rt HAND tendon repair, Gastric Banding 2005 WITH PORT, Hysterectomy 2007. left shoulder CLAVICLE REPAIR 2015, 06/2017 - Family History Known Family History: Positive: Cardiac Disease, Hypertension, Diabetes - Social History Occupation: Employed Part-time Lives: With Family Alcohol Use: None Substance Use Type: None Substance Use Comment - Amount & Last Used: 16 Smoking Status (MU): Never Smoked Tobacco Type: Cigarettes Length of Time of Smoking/Using Tobacco: SMOKED FOR ~1 MONTH IN THE '90S Have You Smoked in the Last Year: No - Immunization History Most Recent Influenza Vaccination: refuses Most Recent Tetanus Shot: up to date Most Recent Pneumonia Vaccination: refuses Vaccination Up to Date: Yes Review of Systems Constitutional: Negative ENT: Nasal Discharge, Sinus Congestion All Other Systems Reviewed And Are Negative: Yes Physical Exam - Summary Physical Exam Summary: Vital Signs Reviewed: Yes A+Ox3, no distress Eyes: Conjunctiva Clear, JOHN. EOM intact and full ENT: Hearing grossly normal mild fluid right TM, normal left turbinates inflammed and boggy, + PND yellow + TTP max sinuses R>l frontal, mmoist, uvula midline, no exudate, no erythema Neck: supple + mild submandibular LA Respiratory: Positive: No respiratory distress, No accessory muscle use + CTA throughout no w/r Cardiovascular: RRR nl s1, s2 no m/r CBT <2 sec abd soft + BS nt/nd no guarding, no distension Musculoskeletal Exam: DELGADO x 4 without difficulty Strength Intact, ROM Intact Neurological: Positive: Alert, + sensation throughout Psychological: Positive: Normal Response To Family Skin: Positive: no rash, no ecchymosis Triage Information Reviewed: Yes Vital Signs: Initial Vital Signs Temp 98 F 03/17/18 18:36 Pulse 72 03/17/18 18:36 Resp 18 03/17/18 18:36 BP 145/79 03/17/18 18:36 Pulse Ox 100 03/17/18 18:36 Throat Pain/Nasal Course/Dx - Course Course Of Treatment: Patient presents with 10 days progressive sinus congestion postnasal drip. Patient has been using over the counter Mucinex and prescription for Flonase with mild relief. Patient here with physical exam consistent with sinusitis. Patient requesting a refill of her Flonase. Will provide Rx amoxicillin. He should also reporting some dental pain. No apparent dental abscess. abx will cover this as well. Encourage patient with secretion precaution,hydrate. motrin/apap rest return precaution - Differential Dx/Diagnosis Provider Diagnoses: sinusitis Discharge - Sign-Out/Discharge Documenting (check all that apply): Discharge/Admit/Transfer - Discharge Plan Condition: Stable Disposition: HOME Prescriptions: Amoxicillin PO (*) [Amoxicillin 875 MG (*)] 875 mg PO BID #20 tab Fluticasone NASAL SPRAY 50MCG* [Flonase NASAL SPRAY 50MCG*] 2 spray BOTH NARES DAILY #1 btl Patient Education Materials: Rhinosinusitis (ED) Referrals: Ashlee Negron MD [Primary Care Provider] - Additional Instructions: - Stay well hydrated. Drink plenty of non-alcoholic, non-caffinated beverages. - Alternate ibuprofen (Advil, Motrin) 600mg and Tylenol every 3 hours for pain or fever. Take with food. Do NOT take for more than 4-5 days. - These infections are spread by secretions - do NOT share eating or drinking utensils - clean items you share with other people such as cell phones, computer mouse, TV remote, computer tablets,etc. Once you have been antibiotics for 2 days, change your toothbrush and your pillowcase. - get plenty of restful sleep - humidify the air in the room where you sleep - boil water, run a hot steam shower, vaporizer, cups of water by heat register - okay to take over the counter decongestant and cough medication - use nasal spray as prescribed - contact your doctor or return with questions or concerns - Billing Disposition and Condition Condition: STABLE Disposition: Home
== END 2018-03-17 19:37 | disposition home or self-care (01) ==
LOC: UCCORT 18:06
DX: J32.9 Chronic sinusitis, unspecified (principal); J02.9 Acute pharyngitis, unspecified; Z91.09 Other allergy status, other than to drugs and biological substances; Z88.8 Allergy status to other drugs, medicaments and biological substances
CPT/HCPCS: 99212; G0463

== ENCOUNTER 2018-08-10 16:39 | Emergency (ER) | payer SELFPAY ==
[2018-08-10 16:54] VITALS: BP 142/80
--- NOTE | 2018-08-10 17:22 | UC ---
Throat Pain/Nasal Javier HPI - HPI Summary HPI Summary: The patient is a 52-year-old female with approximately one-week history of sore throat and nasal congestion postnasal drip and cough. She denies any fever or chills. She has been able to eat and drink okay. She denies any chest pain or shortness of breath. - History of Current Complaint Chief Complaint: UCRespiratory Stated Complaint: SORE THROAT, AND COUGH Time Seen by Provider: 08/10/18 16:54 Hx Obtained From: Patient Hx Last Menstrual Period: hysterectomy 2007 Onset/Duration: Gradual Onset, Lasting Days Severity: Moderate Pain Intensity: 5 Pain Scale Used: 0-10 Numeric Cough: Nonproductive - Allergies/Home Medications Allergies/Adverse Reactions: Allergies Allergy/AdvReac Type Severity Reaction Status Date / Time Adhesive Tape Allergy Intermediate Rash Verified 08/10/18 16:47 lisinopril Allergy Coughing Verified 08/10/18 16:47 Home Medications: Home Medications Fluticasone NASAL SPRAY 50MCG* [Flonase NASAL SPRAY 50MCG*] 2 spray BOTH NARES DAILY PRN 08/10/18 [History] Gabapentin CAP(*) [Neurontin 300 CAP(*)] 300 mg PO DAILY 08/10/18 [History] PMH/Surg Hx/FS Hx/Imm Hx Endocrine History: Diabetes, Dyslipidemia Cardiovascular History: Hypertension Other History Of: Negative For: HIV, Hepatitis B, Hepatitis C, Anticoagulant Therapy - Surgical History Surgical History: Yes Surgery Procedure, Year, and Place: C section x 2 1986,1984, LEFT AND RIGHT Hand Surgery x 2: L ligaments and Rt HAND tendon repair, Gastric Banding 2005 WITH PORT, Hysterectomy 2007. left shoulder CLAVICLE REPAIR 2015, 06/2017 - Family History Known Family History: Positive: Cardiac Disease, Hypertension, Diabetes - Social History Alcohol Use: Occasionally Substance Use Type: None Substance Use Comment - Amount & Last Used: 16 Smoking Status (MU): Never Smoked Tobacco Type: Cigarettes Length of Time of Smoking/Using Tobacco: SMOKED FOR ~1 MONTH IN THE '90S Have You Smoked in the Last Year: No - Immunization History Most Recent Influenza Vaccination: refuses Most Recent Tetanus Shot: up to date Most Recent Pneumonia Vaccination: refuses Vaccination Up to Date: Yes Review of Systems Constitutional: Negative Skin: Negative Eyes: Negative ENT: Sore Throat, Nasal Discharge, Sinus Congestion Respiratory: Cough Cardiovascular: Negative Gastrointestinal: Negative Genitourinary: Negative Motor: Negative Neurovascular: Negative Musculoskeletal: Negative Neurological: Negative Psychological: Negative All Other Systems Reviewed And Are Negative: Yes Physical Exam Triage Information Reviewed: Yes Appearance: Well-Appearing, No Pain Distress, Well-Nourished Vital Signs: Initial Vital Signs Temp 99.0 F 08/10/18 16:49 Pulse 87 08/10/18 16:49 Resp 18 08/10/18 16:49 BP 142/80 08/10/18 16:49 Pulse Ox 100 08/10/18 16:49 Vital Signs Reviewed: Yes Eyes: Positive: Conjunctiva Clear ENT: Positive: Hearing grossly normal, Pharyngeal erythema, Nasal congestion, TMs normal, Tonsillar swelling, Uvula midline. Negative: Tonsillar exudate, Trismus, Muffled voice, Hoarse voice, Sinus tenderness Neck: Positive: Supple, Enlarged Nodes @ - ant cervical Respiratory: Positive: Lungs clear, Normal breath sounds, No respiratory distress Cardiovascular: Positive: RRR, No Murmur Musculoskeletal: Positive: ROM Intact, No Edema Neurological: Positive: Alert Psychological Exam: Normal Skin Exam: Normal Diagnostics - Laboratory Diagnostic Studies Completed/Ordered: strep - Throat Pain/Nasal Course/Dx - Differential Dx/Diagnosis Provider Diagnoses: viral URI. pharyngitis Discharge - Sign-Out/Discharge Documenting (check all that apply): Patient Departure All imaging exams completed and their final reports reviewed: No Studies - Discharge Plan Condition: Stable Disposition: HOME Patient Education Materials: Upper Respiratory Infection (ED) Forms: *Work Release Referrals: Ashlee Negron MD [Primary Care Provider] - 4 Days (if not better) Additional Instructions: rest fluids tylenol if needed recheck for new or worsening symptoms - Billing Disposition and Condition Condition: STABLE Disposition: Home
== END 2018-08-10 17:29 | disposition home or self-care (01) ==
LOC: UCEAST 16:39
DX: J06.9 Acute upper respiratory infection, unspecified (principal); J02.9 Acute pharyngitis, unspecified; Z88.8 Allergy status to other drugs, medicaments and biological substances; Z91.048 Other nonmedicinal substance allergy status; Z87.891 Personal history of nicotine dependence
CPT/HCPCS: 87651; 99211; G0463

== ENCOUNTER 2018-09-13 20:09 | Emergency (ER) | payer BC, OTHER ==
[2018-09-13 21:05] VITALS: BP 145/86
--- NOTE | 2018-09-13 21:39 | UC ---
UC General HPI - HPI Summary HPI Summary: 2 WEEK HX GENERALIZED L SHOULDER PAIN. NO ACUTE INJURY. PRIOR HX SURGERY SAME SHOULDER X 2. CALLED DR ROCHE BUT NOT ABLE TO GET IN UNTIL OCTOBER. L THUMB HAS CHRONIC NUMBNESS OTHERWISE NO ACUTE NUMBNESS OR WEAKNESS TO L AM. NO CP OR SOB. - History of Current Complaint Chief Complaint: UCUpperExtremity Stated Complaint: LEFT SHOULDER PAIN Time Seen by Provider: 09/13/18 21:27 Hx Obtained From: Patient Hx Last Menstrual Period: hysterectomy 2007 Timing: Constant Pain Intensity: 7 Aggravating: MOVEMENT Associated Signs & Symptoms: Negative: Back Pain, Chest Pain, SOB - Allergy/Home Medications Allergies/Adverse Reactions: Allergies Allergy/AdvReac Type Severity Reaction Status Date / Time Adhesive Tape Allergy Intermediate Rash Verified 09/03/18 13:56 lisinopril Allergy Coughing Verified 09/03/18 13:56 PMH/Surg Hx/FS Hx/Imm Hx Endocrine History: Diabetes, Dyslipidemia Cardiovascular History: Hypertension Other History Of: Negative For: HIV, Hepatitis B, Hepatitis C, Anticoagulant Therapy - Surgical History Surgical History: Yes Surgery Procedure, Year, and Place: C section x 2 1986,1984, LEFT AND RIGHT Hand Surgery x 2: L ligaments and Rt HAND tendon repair, Gastric Banding 2005 WITH PORT, Hysterectomy 2007. left shoulder CLAVICLE REPAIR 2015, 06/2017 - Family History Known Family History: Positive: Cardiac Disease, Hypertension, Diabetes - Social History Occupation: Employed Full-time Alcohol Use: Rare Substance Use Type: None Substance Use Comment - Amount & Last Used: 16 Smoking Status (MU): Never Smoked Tobacco Type: Cigarettes Length of Time of Smoking/Using Tobacco: SMOKED FOR ~1 MONTH IN THE '90S Have You Smoked in the Last Year: No - Immunization History Most Recent Influenza Vaccination: refuses Most Recent Tetanus Shot: up to date Most Recent Pneumonia Vaccination: refuses Vaccination Up to Date: Yes Review of Systems All Other Systems Reviewed And Are Negative: Yes Constitutional: Positive: Negative Skin: Positive: Negative Eyes: Positive: Negative ENT: Positive: Negative Respiratory: Positive: Negative Cardiovascular: Positive: Negative Gastrointestinal: Positive: Negative Genitourinary: Positive: Negative Motor: Positive: Negative Neurovascular: Positive: Negative Musculoskeletal: Positive: Other: - L SHOULDER PAIN Neurological: Positive: Negative Psychological: Positive: Negative Physical Exam Triage Information Reviewed: Yes Appearance: Well-Appearing Vital Signs: Initial Vital Signs Temp 97.9 F 09/13/18 20:58 Pulse 86 09/13/18 20:58 Resp 16 09/13/18 20:58 BP 145/86 09/13/18 20:58 Pulse Ox 100 09/13/18 20:58 Vital Signs Reviewed: Yes Eyes: Positive: Conjunctiva Clear ENT: Positive: Normal ENT inspection Neck: Positive: Supple, Nontender, No Lymphadenopathy, Other: - c-spine non tender. Respiratory: Positive: Lungs clear, Normal breath sounds Cardiovascular: Positive: RRR, No Murmur Musculoskeletal: Positive: Other: - LUE: scars over shoulder and sulcus to top of shoulder. tender over the top and anterior shoulder. active and passive rom is intact with limited rom due to generalized pain. elbow, wrist and hand are non tender. Hand has gross v/m function. pt notes decreased sensation thumb( chronic) rest of hand is intact. Neurological: Positive: Alert Psychological: Positive: Age Appropriate Behavior Skin Exam: Normal Skin: Negative: Rashes Course/Dx - Course Course Of Treatment: no acute injury thus no xray indicated. pt unable to see Dr Roche at [facility] ortho until october thus will refer to Dr Lester in the meantime and tx with brief nsaid. - Diagnoses Provider Diagnosis: Left shoulder pain Discharge - Sign-Out/Discharge Documenting (check all that apply): Patient Departure All imaging exams completed and their final reports reviewed: No Studies - Discharge Plan Condition: Stable Disposition: HOME Prescriptions: Naproxen [Naprosyn 500 mg tab] 500 mg PO BID 5 Days #10 tablet Patient Education Materials: Shoulder Pain (ED) Referrals: Nic Lester MD [Medical Doctor] - As Soon As Possible - Billing Disposition and Condition Condition: STABLE Disposition: Home
== END 2018-09-13 21:45 | disposition home or self-care (01) ==
LOC: UCCORT 20:09
DX: M25.512 Pain in left shoulder (principal); I10 Essential (primary) hypertension; E11.9 Type 2 diabetes mellitus without complications
CPT/HCPCS: 99212; G0463

== ENCOUNTER 2018-10-12 20:53 | Emergency (ER) | payer SELFPAY ==
--- OUTSIDE RECORDS SUMMARY | 2018-10-12 21:06 | XMS REPORT | Continuity of Care Document ---
:1965 External Reference #:[id number] Author Name Mariela Dick Care Team Providers Name Role Phone Ashlee Negron MD Primary Care Physician Unavailable Payers Type Date Identification Numbers Payment Provider Subscriber Expires: 2016 Policy Number: [id number] [facility] Mindy Whittington PayID: [id number] [address] [place] [address] Effective: 2009 Policy Number: [id number] [facility] Sidney Christie Expires: 2010 PayID: [id number] [address] [address] [place] [address] Onset: 2013 Policy Number: [facility] Mindy Whittington [id number] Group Number: [id number] [address] [address] PayID: [place] [address] Onset: 2011 Policy Number: [facility] Mindy Whittington [id number] Group Number: [id number] [address] [address] PayID: [place] [address] Advance Directives Description No Information Available Problems Date Description Provider Status Onset: 07/06/2016 Localized, secondary osteoarthritis of the Daron Poole MD Active shoulder region Onset: 07/06/2016 Disorder of shoulder Daron Poole MD Active Onset: 07/06/2016 Injury of shoulder region Daron Poole MD Active Onset: 08/24/2016 Strain of muscle(s) and tendon(s) of the Daron Poole MD Active rotator cuff of left shoulder, subsequent encounter Onset: 09/20/2017 Brachial neuritis Daron Poole MD Active Family History Date Family Member(s) Problem(s) Comments General Diabetes General Heart Disease General Cancer Social History Type Date Description Comments Sex Unknown 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 ETOH Use Denies alcohol use Tobacco Use Start: Unknown End: Unknown Denies Smoking Smoking Status Reviewed: 09/14/18 Denies Smoking Allergies, Adverse Reactions, Alerts Description No Known Drug Allergies Medications Medication Date Status Form Strength Qnty SIG Indications Ordering Provider Metoprolol Active Unknown Triamterene Active Unknown Aspirin Childrens Active Unknown /0000 Methylprednisolone Active TBPK 4mg Galyanova , MD Ashlee Naproxen Active Tablets 500mg Daniele, MD Dave Fluticasone Active Suspension 50mcg/Act Hebert, Propionate Fabiana Busby MD Losartan Potassium Active Tablets 25mg 1 by Unknown /0000 mouth every day Atorvastatin Active Tablets 1 by Unknown Calcium mouth every day Metformin HCL Active Tablets 1000mg 1 by Unknown mouth twice a day Cyclobenzaprine HCL Active Tablets 5mg Unknown Keflex 07/06 Hx Capsules 500mg 20cap take 1 s tab by Barry Poole MD 10/10 times a day x 5 days Oxycodone-Acetamino 06/16 Hx Tablets 5-325mg 40tab 1-2 tabs S46.012D s by liv Poole - selena FONTAINE 10/10- hours as needed for post op pain. Do not fill until 07/04/17 Percocet 10/07 Hx Tablets 5-325mg 30tab 1 - 2 lizzette s tabs by Barry Poole MD 02/07 every - 6 hours as needed for pain. Valium 05/25 Hx Tablets 5mg 3tabs 1 by mouth 2 Maged, - rodney M.D. 11/17 prior to mri may take one more every 1 hour as needed anxiety Pravastatin Sodium 00 Hx Unknown / - 02/21 Lisinopril Hx Tablets 10mg Lorena, / MD Nelson - 11/[address] 40mg Galyan , - Ashlee 06/15 , MD Cyclobenzaprine HCL Hx Tablets 10mg Galyan / , - Ashlee 02/21 , MD Pravastatin Sodium Hx Tablets 80mg Galyan , - Ashlee 06/15 , MD Baclofen Hx Tablets 10mg Daniele, 0000 MD Dave - 06/15 Tobramycin Hx Solution 0.3% Hebert, Fabiana Busby MD 06/15 Medications Administered in Office Medication Date Status Form Strength Qnty SIG Indications Ordering Provider Triamcinolone 09/20/ Administered Injection Zaneb (Kenalog) 2016 MD Zulema Triamcinolone 01/06/ Administered Injection Cate (Kenalog) 2016 JAVIER Rodrigues Depomedrol 40MG 03/29/ Administered Injection Dirk 2015 Padmini Alejandra Depomedrol 40MG 02/22/ Administered Injection Dirk 2015 Padmini Alejandra Depomedrol 80MG 07/08/ Administered Injection West 2010 Padmini Braxton Immunizations Description No Information Available Vital Signs Date Vital Result Comment 09/14/2018 2:52pm Height 66 inches 5'6" Weight 315.00 lb Heart Rate 80 /min BP Systolic 138 mmHg BP Diastolic 72 mmHg Body Temperature 97.3 F Pain Level 6 BMI (Body Mass Index) 50.8 kg/m2 11/03/2017 8:05am Height 66 inches 5'6" Weight 302.00 lb Heart Rate 72 /min BP Systolic 121 mmHg BP Diastolic 78 mmHg Body Temperature 96.8 F Pain Level 4 BMI (Body Mass Index) 48.7 kg/m2 09/20/2017 10:26am Height 66 inches 5'6" Weight 302.00 lb BP Systolic 128 mmHg BP Diastolic 78 mmHg Respiratory Rate 20 /min Pain Level 9 BMI (Body Mass Index) 48.7 kg/m2 08/23/2017 2:44pm Height 66 inches 5'6" Weight 302.00 lb Heart Rate 79 /min BP Systolic 134 mmHg BP Diastolic 86 mmHg Respiratory Rate 16 /min Pain Level 6 BMI (Body Mass Index) 48.7 kg/m2 07/19/2017 1:24pm Height 66 inches 5'6" Weight 302.00 lb BP Systolic 140 mmHg BP Diastolic 84 mmHg Respiratory Rate 20 /min Body Temperature 97.5 F Pain Level 4 BMI (Body Mass Index) 48.7 kg/m2 06/16/2017 2:18pm Height 66 inches 5'6" Weight 302.00 lb BP Systolic 130 mmHg BP Diastolic 80 mmHg BMI (Body Mass Index) 48.7 kg/m2 02/10/2017 1:03pm Height 66 inches 5'6" Weight 312.00 lb Heart Rate 80 /min BP Systolic 155 mmHg BP Diastolic 92 mmHg Body Temperature 96.8 F Pain Level 5 BMI (Body Mass Index) 50.4 kg/m2 01/06/2017 2:12pm Height 66 inches 5'6" Weight 300.00 lb Heart Rate 82 /min BP Systolic 122 mmHg BP Diastolic 74 mmHg Respiratory Rate 16 /min Body Temperature 97.3 F Pain Level 6 BMI (Body Mass Index) 48.4 kg/m2 12/16/2016 11:37am Height 66 inches 5'6" Weight 300.00 lb Respiratory Rate 16 /min Pain Level 6 BMI (Body Mass Index) 48.4 kg/m2 11/18/2016 9:59am Height 66 inches 5'6" Weight 306.00 lb Heart Rate 84 /min BP Systolic Sitting 122 mmHg BP Diastolic Sitting 84 mmHg Respiratory Rate 16 /min Body Temperature 97.7 F Pain Level 5 BMI (Body Mass Index) 49.4 kg/m2 10/22/2016 11:49am Height 66 inches 5'6" Weight 306.00 lb Respiratory Rate 16 /min Pain Level 6 BMI (Body Mass Index) 49.4 kg/m2 08/24/2016 10:29am Height 66 inches 5'6" Weight 306.00 lb Respiratory Rate 16 /min Pain Level 8 BMI (Body Mass Index) 49.4 kg/m2 07/06/2016 2:43pm Height 66 inches 5'6" Weight 306.00 lb Heart Rate 64 /min Respiratory Rate 16 /min Pain Level 4 BMI (Body Mass Index) 49.4 kg/m2 05/10/2016 9:25am Height 66 inches 5'6" Weight 306.00 lb Pain Level 5 BMI (Body Mass Index) 49.4 kg/m2 03/29/2016 1:58pm Height 66 inches 5'6" Weight 306.00 lb Heart Rate 70 /min BP Systolic 138 mmHg BP Diastolic 89 mmHg BMI (Body Mass Index) 49.4 kg/m2 02/23/2016 11:01am Height 66 inches 5'6" Heart Rate 72 /min BP Systolic Sitting 126 mmHg BP Diastolic Sitting 84 mmHg Respiratory Rate 16 /min Pain Level 5 12/17/2013 9:52am Height 66 inches 5'6" Heart Rate 75 /min BP Systolic 133 mmHg BP Diastolic 85 mmHg 11/19/2013 9:20am Height 66 inches 5'6" Weight 310.00 lb Heart Rate 75 /min BP Systolic 127 mmHg BP Diastolic 84 mmHg BMI (Body Mass Index) 50.0 kg/m2 Results Test Date Facility Test Result H/L Range Note Laboratory test [facility] Surgical SEE RESULT 1 finding [address] [place] [address] [phone] Laboratory test [facility] Point of Care 150 mg/dL High 70-100 2 finding [address] [place] [address] [phone] Laboratory test [facility] Point of Care 137 mg/dL High 70-100 3 finding [address] [place] [address] [phone] Laboratory test [facility] Point of Care 248 mg/dL High 74-106 4 finding [address] Gl[place], [place] [address] [phone] Laboratory test [facility] Point of Care 194 mg/dL High 74-106 5 finding [address] [place] [address] [phone] Laboratory test [facility] Troponin I 0.01 ng/mL 0- 0.06 6 finding [address] [place] [address] [phone] Laboratory test [facility] Thyroglobulin AB 269 IU/mL Abnormal <116 7 finding [address] [place] [address] [phone] Lipid Profile [facility] Triglyceride 100 mg/dL 40- 200 (Trig/Chol/HDL) [address] [place] [address] [phone] Cholesterol 153 mg/dL Less Than 200 8 High Density Lipoprotein 36 mg/dL Low 40-60 9 Cholesterol/HDL Ratio 4.25 AVERAGE 1-4.44 Low Density Lipoprotein 97 mg/dL Less Than 100 10 Laboratory test 03/27/2012 [facility] CPK (Creatine 117 U/L 0 -[address] Kinase) [place] [address] [phone] CKMB 03/27/2012 [facility] CKMB In NG/ML 1.0 NG/ML 0.3-4.[address] [place] [address] [phone] % CKMB 1 %MB 0-9 11 Laboratory test 03/27/2012 [facility] Troponin-I 0.01 NG/ML 0 -0.06 [address] [place] [address] [phone] Thyroxine 6.9 g/dL 5-12 TSH 1.07 MIU/ML 0.34-5.60 Thyroperoxidase Antibody 6.2 IU/mL Less Than 9.0 Laboratory test 01/26/2011 [facility] Hemoglobin A1c 5.9 % Less Than [address] 6[address]0 [place] [address] [phone] 1 SEE RESULT BELOW Name: MINDY WHITTINGTON : [address]: Daron Poole MD Acct: [id number] Unit: [id number] AGE: 51 Location: OR Re07/06/17 SEX: F Status: IVETT BUSTAMANTE SPEC: [id number] JF: 07/06/17-12[address] [facility] [address]: Daron oPole MD REQ: [id number] RECD: 07/06/17-8730 STATUS: SOUT _ ORDERED: Decal, LEVEL 3 FINAL DIAGNOSIS Left distal clavicle, excision: -- Benign bone and cartilage with reactive change. PRE-OPERATIVE DIAGNOSIS Strain of muscle and tendon of rotator cuff left shoulder GROSS DESCRIPTION The specimen is received in formalin labeled, Left Distal Clavicle, and consists of a 2.4 x 1.8 x 1.4 cm evans-pink irregular focally cauterized bone fragment with scant adherent soft tissue and red-brown blood clot. Medical Assistant sections, one cassette following decalcification. MICROSCOPIC DESCRIPTION Signed (signature on file) Radha Thompson MD 12/24 1127 END OF REPORT * ML=Testing performed at Main Lab DEPARTMENT OF PATHOLOGY, [address] [place] [address] Portillo Nunez M.D. Director [facility] # [id number] 2 Assembly Member: [id number] Assembly Member: [id number] Assembly Member: [id number] MANUEL PATEL 5 Assembly Member: [id number] MOLLY ARIAS 6 Reference Range and Interpretation: TnI (ng/mL) Interpretation Less Than 0.06 ng/mL Not supportive of diagnosis of [place] 0.06 - 0.50 ng/mL Indeterminate: suggest serial studies if clinically indicated. Greater than 0.5 ng/mL Consistent with diagnosis of [place] 7 If thyroglobulin antibody measurement is performed to assess the reliability of the thyroglobulin assay for thyroid cancer patient follow-up, a thyroglobulin antibody result=/>22 IU/mL may result in falsely decreased thyroglobulin values. The thyroglobulin antibody testing method is an electrochemiluminescence assay manufactured by [employer] and performed on the Modular or Leo system. Values obtained from different assay methods or kits may be different and cannot be used interchangeably. Test Performed by: [place] [address] Site Safety Coordinator: Dat Lombardo III, M.D. 8 CHOLESTEROL INTERPRETATION: Desirable: Less than 200 MG/DL Borderline-High Risk: 200-239 MG/DL High-Risk: 240 MG/DL and over 9 HDL INTERPRETATION: Undesirable: High Risk: Less than 40 MG/DL Desirable: Low Risk: Greater than 60 MG/DL 10 LDL INTERPRETATION: Low Risk Optimal Level: LDL Less than 100 MG/DL Near or Above Optimal: LDL 100-129 MG/DL Borderline High Risk: LDL 130-159 MG/DL High Risk: LDL 160-189 MG/DL Very High Risk: LDL Greater than 189 MG/DL 11 INTERPRETATION %CK-MB < 5% NOT SUPPORTIVE OF DIAGNOSIS OF [place] 5 - <10% INDETERMINATE; SUGGEST SERIAL STUDIES IF CLINICALLY INDICATED 10% OR > CONSISTENT WITH DIAGNOSIS OF [place] . 12 New Reference Range and Interpretation effective 07/13/2002 TnI (ng/ml) INTERPRETATION Less Than 0.06 ng/mL NOT SUPPORTIVE OF DIAGNOSIS OF [place] 0.06 - 0.50 ng/ml INDETERMINATE: SUGGEST SERIAL STUDIES IF CLINICALLY INDICATED. Greater than 0.5 ng/mL CONSISTENT WITH DIAGNOSIS OF [place] . 13 THERAPEUTIC TARGET FOR THE TREATMENT OF DIABETES MELLITUS PATIENTS IS <7% HBA1C, AND IN SELECTIVE PATIENTS <6.0%. PLEASE REFER TO [employer] [place] [employer] DIABETIC CARE GUIDELINES FOR FURTHER INFORMATION. Procedures Date Code Description Status 09/14/201820484 Inject/Drain Joint/Bursa Major W/O US Completed 09/20/201701150 Inject/Drain Joint/Bursa Major W/O US Completed 07/06/2017 25323 claviculectomy;partial Completed 07/06/2017 91479 claviculectomy;partial Completed 01/06/201712492 Inject/Drain Joint/Bursa Major W/O US Completed 10/07/2016 43496 Arthroscopy,Shoulder Decompression Of Subacromial Space Completed W/Acromio 10/07/2016 59787 Arthroscopy,Shoulder Decompression Of Subacromial Space Completed W/Acromio 10/07/2016 23348 Arthroscopy,Shoulder,Distal Claviculectomy Incl Dist Completed Articular SR 10/07/2016 48669 Arthroscopy,Shoulder,Distal Claviculectomy Incl Dist Completed Articular SR 09/30/2016 66438 Arthroscopy,Shoulder,Distal Claviculectomy Incl Dist Completed Articular SR 09/30/2016 57613 Arthroscopy,Shoulder Decompression Of Subacromial Space Completed W/Acromio 03/29/2016 78247 Inject/Drain Joint/Bursa Major W/O US Completed 03/29/201629421 Inject/Drain Joint/Bursa Major W/O US Completed 02/23/2016 Inject/Drain Joint/Bursa Intermediate W/O US Completed 02/23/201694910 Inject/Drain Joint/Bursa Intermediate W/O US Completed 11/19/2013 93844 FX Distal Finger/Thumb Care Completed 11/19/2013 81484 Closed TX Phalanx finger/thumb shaft w/o manipulation Completed 11/10/2013 65374 Treadmill Interp/Report Only Completed 11/10/2013 48137 Stress Test Supervsn W/Out I/R Completed 03/08/2013 14395 Rad Exam; Knee, Ap&L Completed 03/08/2013 79987 Xray Knee 3 Views Completed 03/27/2012 89556 Treadmill Interp/Report Only Completed 03/27/2012 10403 Stress Test Supervsn W/Out I/R Completed 07/08/2011 30678 Rad Shoulder Comp, Min. 2 Views Completed 07/08/2011 12854 Inject/Drain Joint/Bursa Major W/O US Completed 01/26/2011 45906 Stress ECHO Interpretation/Report Hospital Completed 01/26/2011 21102 Treadmill Interp/Report Only Completed 01/26/2011 35491 Stress Test Supervsn W/Out I/R Completed 01/26/2011 33613 EKG, Interpretation Only Completed 12/09/2010 55422 Rad Exam; Both Knees, Standing Ap Completed 11/06/2007 56201 ECHO/Stress Completed 11/06/2007 43800 ECHO/Stress Completed 11/06/2007 11574 ECHO/Stress Completed 11/06/2007 85357 Stress Test Completed 11/06/2007 48356 Stress Test Completed 07/21/2004 88987 ECHO/Stress Completed 07/21/2004 16710 Treadmill Interp/Report Only Completed 07/21/2004 83462 Stress Test Supervsn W/Out I/R Completed Encounters Type Date Location Provider Dx Diagnosis Office Visit 09/14/2018 Blake Poole MD S46.012D Strain of 2:45p [facility] musc/tend the rotator cuff of left shoulder, subs M19.212 Secondary osteoarthritis, left shoulder S46.012D Strain of musc/tend the rotator cuff of left shoulder, subs Office Visit 11/03/2017 Orthopedic Daron Poole, M19.212 Secondary 8:00a [facility] osteoarthritis, left [facility] shoulder S46.012D Strain of gerry/gela the rotator cuff of left shoulder, subs M54.12 Radiculopathy, cervical region M19.212 Secondary osteoarthritis, left shoulder Office Visit 02/10/2017 1:00p Blake Poole S46.012D Strain of [facility] MD garrett/tend the [facility] rotator cuff of left shoulder, subs M19.212 Secondary osteoarthritis, left shoulder Office Visit 01/06/2017 2:00p Blake Poole S46.012D Strain of [facility] MD garrett/tend the [facility] rotator cuff of left shoulder, subs M19.212 Secondary osteoarthritis, left shoulder S46.102D Unsp injury of musc/fasc/tend long hd bicep, left arm, subs M75.42 Impingement syndrome of left shoulder M19.012 Primary osteoarthritis, left shoulder Office Visit 08/24/2016 10:15a Blake Poole S46.012D Strain of [facility] MD garrett/tend the [facility] rotator cuff of left shoulder, subs M19.212 Secondary osteoarthritis, left shoulder S46.102A Unsp injury of musc/fasc/tend long hd bicep, left arm, init M75.22 Bicipital tendinitis, left shoulder Office Visit 05/10/2016 9:15a Orthopedic Jevon Alejandra S46.012D Strain of [facility] Padmini garrett/tend the [facility] rotator cuff of left shoulder, subs S46.012D Strain of gerry/tend the rotator cuff of left shoulder, subs Office Visit 03/29/2016 Orthopedic Jevon Alejandra, M19.012 Primary 1:45p [facility] Padmini osteoarthritis, left [facility] shoulder S46.012A Strain of musc/tend the rotator cuff of left shoulder, init M19.012 Primary osteoarthritis, left shoulder Office Visit 02/23/2016 Orthopedic Jevon Alejandra, M19.012 Primary 10:30a [facility] Padmini osteoarthritis, left [facility] shoulder M19.012 Primary osteoarthritis, left shoulder Office Visit 11/11/2013 2:37p [facility] Oumar Crocker, 786.51 Pain Precordial Assoc,k[facility]y [place] Hospitalists 272.2 Hyperlipidemia Mixed 250.00 Diabetes Mellitus W/O Compl Type II Or Unspec Controlled Office Visit 11/10/2013 [facility] Max Gaming 786.51 Pain Precordial 2:36p Assoc,kasey [place] M.D. Hospitalists Hospitalist 272.2 Hyperlipidemia Mixed 250.00 Diabetes Mellitus W/O Compl Type II Or Unspec Controlled Office Visit 04/06/2013 9:00a Orthopedic Jevon Alejandra, 727.51 Cyst Synovial [facility] [place] Popliteal Space 836.0 Dislocation Knee Tear Of Medial Cartilage Or Meniscus Curr Office Visit 03/08/2013 10:45a Orthopedic Jevon Alejandra 727.51 Cyst [facility] [place] Popliteal Space 836.0 Dislocation Knee Tear Of Medial Cartilage Or Meniscus Curr Office 01/26/2011 [facility] S. 794.31 Electrocardiogram Visit 11:46a Cardiology Padmini [place] (ECG) (EKG) Abnormal 786.50 Pain Chest Unspec 250.00 Diabetes Mellitus W/O Compl Type II Or Unspec Controlled 272.4 Hyperlipidemia Other Unspec 401.1 Hypertension Benign Office Visit 12/09/2010 3:45p Orthopedic Jevon Alejandra, 715.96 Osteoarthrosis [facility] P[facility]i Unspec Genlzd Or [facility] Localized Lower Leg 727.51 Cyst Synovial Popliteal Space Plan of Treatment Future Appointment(s):11/16/2018 3:15 pm - Daron Poole MD at [facility]09/14/2018 - Zaneb Yaseen, MDS46.012D Strain of muscle(s) and tendon(s) of the rotator cuff of lefNew Therapy:Physical TherapyFollow up: Follow up: 8 [id number] Secondary osteoarthritis, left shoulder
[2018-10-12 21:15] VITALS: BP 149/89
--- NOTE | 2018-10-12 21:29 | UC ---
Respiratory Complaint HPI - HPI Summary HPI Summary: cough and chest cold for a week or so. feels sinus congestion. did get her flu shot. - History of Current Complaint Chief Complaint: UCGeneralIllness Stated Complaint: COUGH,CHEST CONGESTION,CHILLS Time Seen by Provider: 10/12/18 20:58 Hx Last Menstrual Period: hysterectomy 2007 Pain Intensity: 7 - Allergies/Home Medications Allergies/Adverse Reactions: Allergies Allergy/AdvReac Type Severity Reaction Status Date / Time Adhesive Tape Allergy Intermediate Rash Verified 10/12/18 21:06 lisinopril Allergy Coughing Verified 10/12/18 21:06 PMH/Surg Hx/FS Hx/Imm Hx Previously Healthy: Yes Other History Of: Negative For: HIV, Hepatitis B, Hepatitis C, Anticoagulant Therapy - Surgical History Surgical History: Yes Surgery Procedure, Year, and Place: C section x 2 1986,1984, LEFT AND RIGHT Hand Surgery x 2: L ligaments and Rt HAND tendon repair, Gastric Banding 2005 WITH PORT, Hysterectomy 2007. left shoulder CLAVICLE REPAIR 2015, 06/2017 - Family History Known Family History: Positive: Cardiac Disease, Hypertension, Diabetes - Social History Alcohol Use: Rare Substance Use Type: None Substance Use Comment - Amount & Last Used: 16 Smoking Status (MU): Never Smoked Tobacco Type: Cigarettes Length of Time of Smoking/Using Tobacco: SMOKED FOR ~1 MONTH IN THE '90S Have You Smoked in the Last Year: No - Immunization History Most Recent Influenza Vaccination: 2018 Most Recent Tetanus Shot: up to date Most Recent Pneumonia Vaccination: refuses Vaccination Up to Date: Yes Review of Systems All Other Systems Reviewed And Are Negative: Yes Constitutional: Positive: Chills. Negative: Fever Skin: Negative: Rash Respiratory: Positive: Cough, Other - +pleuritic chest pain mostly on L and only when she coughs. Gastrointestinal: Negative: Vomiting, Diarrhea Neurological: Negative: Headache Physical Exam Triage Information Reviewed: Yes Appearance: Well-Appearing Vital Signs: Initial Vital Signs Temp 98.1 F 10/12/18 21:09 Pulse 75 10/12/18 21:09 Resp 16 10/12/18 21:09 BP 149/89 10/12/18 21:09 Pulse Ox 100 10/12/18 21:09 ENT: Positive: Pharynx normal, Nasal congestion, TMs normal, Uvula midline. Negative: Nasal drainage, Sinus tenderness Respiratory Exam: Normal Respiratory: Positive: Other: - coughing during visit. Cardiovascular Exam: Normal Neurological: Positive: Alert Skin Exam: Normal UC Diagnostic Evaluation - Laboratory O2 Sat by Pulse Oximetry: 100 Respiratory Course/Dx - Differential Dx/Diagnosis Differential Diagnosis/HQI/PQRI: Bronchitis, Laryngitis, Sinusitis Provider Diagnosis: Cough Discharge - Sign-Out/Discharge Documenting (check all that apply): Patient Departure All imaging exams completed and their final reports reviewed: No Studies - Discharge Plan Condition: Good Disposition: HOME Prescriptions: Benzonatate CAP* [Tessalon 100 MG CAP*] 100 mg PO TID 3 Days #9 cap Patient Education Materials: Upper Respiratory Infection (ED) Forms: *Work Release Referrals: Cat Cotton NP [Primary Care Provider] - Additional Instructions: If no improvement after 3-5 days please follow up with your pcp. - Billing Disposition and Condition Condition: GOOD Disposition: Home
== END 2018-10-12 21:45 | disposition home or self-care (01) ==
LOC: UCCORT 20:53
DX: R05 Cough (principal); Z88.8 Allergy status to other drugs, medicaments and biological substances; Z87.891 Personal history of nicotine dependence
CPT/HCPCS: 99212; G0463

== ENCOUNTER 2018-11-27 16:54 | Emergency (ER) | payer BC ==
--- OUTSIDE RECORDS SUMMARY | 2018-11-27 18:55 | XMS REPORT | Continuity of Care Document ---
:1965 External Reference #:[id number] Author Name Mariela Dick Care Team Providers Name Role Phone Ashlee Negron MD Primary Care Physician Unavailable Payers Date Identification Numbers Payment Provider Subscriber Expires: 2016 Policy Number: [id number] [facility] Mindy Whittington PayID: [id number] [address] [place] [address] Effective: 2009 Policy Number: [id number] [facility] Sidney Christie Expires: 2010 PayID: [id number] [address] [address] [place] [address] Onset: 2011 Policy Number: [id number] [facility] Mindy Whittington Group Number: [id number] [address] [address] PayID: [place] [address] Onset: 2013 Policy Number: [id number] [facility] Mindy Whittington Group Number: [id number] [address] [address] PayID: [place] [address] Advance Directives Description No Information Available Problems [...] MD Active Family History Date Family Member(s) Observation Comments General Diabetes General Heart Disease General Cancer Social History Type Date Description Comments Sex Unknown 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 ETOH Use Denies alcohol use Tobacco Use Start: Unknown End: Unknown Denies Smoking Smoking Status Reviewed: 11/16/18 Denies Smoking Allergies, Adverse Reactions, Alerts Description [...] tabs S46.012D s by liv Poole - every 10/10- hours as needed for post op [...] - 02/21 Lisinopril Hx Tablets 10mg Lorena, MD Nelson - 11/[address] 40mg Galyan / , - Ashlee 06/15 , Cyclobenzaprine HCL Hx Tablets 10mg Galyanova /0000 , - Ashlee 02/21 , Pravastatin Sodium Hx Tablets 80mg Galyanova /0000 , - Ashlee 06/15 , MD Baclofen Hx Tablets 10mg Daniele, /0000 MD Dave - 06/15 Tobramycin Hx Solution 0.3% Hebert, Fabiana Busby MD 06/15 Medications Administered in Office Medication Date Status Form Strength Qnty SIG Indications Ordering Provider Triamcinolone 09/14/ Administered Injection Zaneb (Kenalog) 2017 MD Zulema Triamcinolone 09/14/ Administered Injection Zaneb (Kenalog) 2017 MD Zulema Triamcinolone 09/20/ Administered Injection Zaneb (Kenalog) 2016 MD Zulema Triamcinolone 01/06/ Administered Injection Cate (Kenalog) 2016 JAVIER Rodrigues Depomedrol 40MG 03/29/ Administered Injection Dirk 2015 Padmini Alejandra Depomedrol 40MG 02/22/ Administered Injection Dirk 2015 Padmini Alejandra Depomedrol 80MG 07/08/ Administered Injection West 2010 Padmini Braxton Immunizations Description No Information Available Vital Signs Date Vital Result Comment 11/16/2018 3:26pm Height 66 inches 5'6" Weight 315.00 lb Heart Rate 84 /min BP Systolic Sitting 130 mmHg BP Diastolic Sitting 94 mmHg Respiratory Rate 16 /min Pain Level 6 BMI (Body Mass Index) 50.8 kg/m2 09/14/2018 2:52pm Height 66 inches 5'6" Weight [...] Test Result H/L Range Note Laboratory test 07/06/2017 [facility] Surgical SEE RESULT [address] [place] [address] [phone] Laboratory test 07/06/2017 [facility] Point of Care 150 mg/dL High 70-[address] [place] [address] [phone] Laboratory test 07/06/2017 [facility] Point of Care 137 mg/dL High 70-[address] Glucose [place], [place] [address] [phone] Laboratory test 10/07/2016 [facility] Point of Care 248 mg/dL High 74-[address] [place] [address] [phone] Laboratory test 10/07/2016 [facility] Point of Care 194 mg/dL High 74-106 [address] [place] [address] [phone] Laboratory test 11/10/2013 [facility] Troponin I 0.01 ng/mL 0 -0.06 [address] [place] [address] [phone] Laboratory test 03/27/2012 [facility] Troponin-I 0.01 NG/ML 0 -0.[address] [place] [address] [phone] Thyroxine 6.9 g/dL 5-12 TSH 1.07 MIU/ML 0.34-5.60 Thyroperoxidase Antibody 6.2 IU/mL Less Than 9.0 CKMB 03/27/2012 [facility] CKMB In NG/ML 1.0 NG/ML 0.3-4.[address] [place] [address] [phone] % CKMB 1 %MB 0-9 8 Laboratory test 03/27/2012 [facility] CPK (Creatine 117 U/L 0 -170 finding [address] [facility] Kinase) [place] [address] [phone] Lipid Profile 03/27/2012 [facility] Triglyceride 100 mg/dL 40 -200 (Trig/Chol/HDL) [address] [place] [address] [phone] Cholesterol 153 mg/dL Less Than 200 9 High Density Lipoprotein 36 mg/dL Low 40-60 10 Cholesterol/HDL Ratio 4.25 AVERAGE 1-4.44 Low Density Lipoprotein 97 mg/dL Less Than 100 11 Laboratory 03/27/2012 [facility] Thyroglobulin AB 269 Abnormal <116 12 test finding [facility] Screen IU/[place] [address] [phone] Laboratory 01/26/2011 [facility] Hemoglobin A1c 5.9 % Less [address] [place] [address] 6.0 [phone] 1 SEE RESULT BELOW Name: WAYLONMINDY M : [address]: Daron Poole MD Acct: [id number] Unit: [id number] AGE: 51 Location: OR Re07/06/17 SEX: F Status: DEP SD SPEC: [id number] JF: 07/06/17-[address] [facility] [address]: Daron Poole MD REQ: [id number] RECD: 07/06/17515 STATUS: SOUT _ ORDERED: Decal, LEVEL 3 [...] adherent soft tissue and red-brown blood clot. Closing Supervisor sections, one cassette following decalcification. MICROSCOPIC DESCRIPTION Signed (signature on file) Radha Thompson MD 12/24 1127 END OF REPORT * ML=Testing performed at Main Lab DEPARTMENT OF PATHOLOGY, [address] [place] [address] Portillo Nunez M.D. Director [facility] # [id number] 2 Boilermaker Helper: [id number] 3 Boilermaker Helper: [id number] 4 Boilermaker Helper: [id number] MANUEL PATEL 5 Boilermaker Helper: SANJANA ARIAS 6 Reference Range and Interpretation: TnI (ng/mL) Interpretation Less Than 0.06 ng/mL Not supportive of diagnosis of MD 0.06 - 0.50 ng/mL Indeterminate: suggest serial studies if clinically indicated. Greater than 0.5 ng/mL Consistent with diagnosis of MD 7 New Reference Range and Interpretation effective 07/13/2002 TnI (ng/ml) INTERPRETATION Less Than 0.06 ng/mL NOT SUPPORTIVE OF DIAGNOSIS OF MD 0.06 - 0.50 ng/ml INDETERMINATE: SUGGEST SERIAL STUDIES IF CLINICALLY INDICATED. Greater than 0.5 ng/mL CONSISTENT WITH DIAGNOSIS OF MD . 8 INTERPRETATION %CK-MB < 5% NOT SUPPORTIVE OF DIAGNOSIS OF MD 5 - <10% INDETERMINATE; SUGGEST SERIAL STUDIES IF CLINICALLY INDICATED 10% OR > CONSISTENT WITH DIAGNOSIS OF MD . 9 CHOLESTEROL INTERPRETATION: Desirable: Less than 200 MG/DL Borderline-High Risk: 200-239 MG/DL High-Risk: 240 MG/DL and over 10 HDL INTERPRETATION: Undesirable: High Risk: Less than 40 MG/DL Desirable: Low Risk: Greater than 60 MG/DL 11 LDL INTERPRETATION: Low Risk Optimal Level: LDL Less than 100 MG/DL Near or Above Optimal: LDL 100-129 MG/DL Borderline High Risk: LDL 130-159 MG/DL High Risk: LDL 160-189 MG/DL Very High Risk: LDL Greater than 189 MG/DL 12 If thyroglobulin antibody measurement is performed to [...] cannot be used interchangeably. Test Performed by: [place] [address] Sales Service Manager: Dat Lombardo III, M.D. 13 THERAPEUTIC TARGET FOR THE TREATMENT OF DIABETES MELLITUS PATIENTS IS <7% HBA1C, AND IN SELECTIVE PATIENTS <6.0%. PLEASE REFER TO [employer] DIABETIC CARE GUIDELINES FOR FURTHER INFORMATION. Procedures Date Code Description Status 09/14/201872036 Inject/Drain Joint/Bursa Major W/O US Completed 09/14/201878340 Inject/Drain Joint/Bursa Major W/O US Completed 09/20/201776730 Inject/Drain Joint/Bursa Major W/O US Completed 07/06/2017 68075 claviculectomy;partial Completed 07/06/2017 50326 claviculectomy;partial Completed 01/06/201770055 Inject/Drain Joint/Bursa Major W/O US Completed 10/07/2016 47511 Arthroscopy,Shoulder,Distal Claviculectomy Incl Dist Completed Articular SR 10/07/2016 10866 Arthroscopy,Shoulder,Distal Claviculectomy Incl Dist Completed Articular SR 10/07/2016 49745 Arthroscopy,Shoulder Decompression Of Subacromial Space Completed W/Acromio 10/07/2016 04810 Arthroscopy,Shoulder Decompression Of Subacromial Space Completed W/Acromio 09/30/2016 07177 Arthroscopy,Shoulder Decompression Of Subacromial Space Completed W/Acromio 09/30/2016 62147 Arthroscopy,Shoulder,Distal Claviculectomy Incl Dist Completed Articular SR 03/29/201669644 Inject/Drain Joint/Bursa Major W/O US Completed 03/29/201604724 Inject/Drain Joint/Bursa Major W/O US Completed 02/23/2016 84715 Inject/Drain Joint/Bursa Intermediate W/O US Completed 02/23/2016 72493 Inject/Drain Joint/Bursa Intermediate W/O US Completed 11/19/2013 31691 FX Distal Finger/Thumb Care Completed 11/19/2013 63416 Closed TX Phalanx finger/thumb shaft w/o manipulation Completed 11/10/2013 08815 Stress Test Supervsn W/Out I/R Completed 11/10/2013 46927 Treadmill Interp/Report Only Completed 03/08/2013 04059 Xray Knee 3 Views Completed 03/08/2013 52669 Rad Exam; Knee, Ap&L Completed 03/27/2012 95270 Treadmill Interp/Report Only Completed 03/27/2012 91992 Stress Test Supervsn W/Out I/R Completed 07/08/2011 66074 Rad Shoulder Comp, Min. 2 Views Completed 07/08/201100420 Inject/Drain Joint/Bursa Major W/O US Completed 01/26/2011 86509 EKG, Interpretation Only Completed 01/26/2011 05530 Stress Test Supervsn W/Out I/R Completed 01/26/2011 39756 Treadmill Interp/Report Only Completed 01/26/2011 29246 Stress ECHO Interpretation/Report Hospital Completed 12/09/2010 46721 Rad Exam; Both Knees, Standing Ap Completed 11/06/2007 73658 ECHO/Stress Completed 11/06/2007 06139 ECHO/Stress Completed 11/06/2007 56636 ECHO/Stress Completed 11/06/2007 32459 Stress Test Completed 11/06/2007 46524 Stress Test Completed 07/21/2004 52092 ECHO/Stress Completed 07/21/2004 46566 Treadmill Interp/Report Only Completed 07/21/2004 73567 Stress Test Supervsn W/Out I/R Completed Encounters Type Date Location Provider Dx Diagnosis Office Visit 09/14/2018 Orthopedic Daron Poole MD S46.012D Strain of 2:45p Services Of [facility] musc/tend the rotator cuff of left shoulder, subs M19.212 Secondary osteoarthritis, left shoulder S46.012D Strain of gerry/gela the rotator cuff of left shoulder, subs Office Visit 11/03/2017 Blake Poole, M19.212 Secondary 8:00a Services Of MD [place], left [facility] shoulder S46.012D Strain of gerry/gela the rotator cuff of left shoulder, subs M54.12 Radiculopathy, cervical region M19.212 Secondary osteoarthritis, left shoulder Office Visit 02/10/2017 1:00p Blake Poole S46.012D Strain of Services Of MD garrett/gela the [facility] rotator cuff of left shoulder, subs M19.212 Secondary osteoarthritis, left shoulder Office Visit 01/06/2017 2:00p Blake Poole S46.012D Strain of Services Of MD garrett/gela the [facility]. rotator cuff of left shoulder, subs M19.212 Secondary osteoarthritis, left shoulder S46.102D Unsp injury of gerry/fasc/gela long hd bicep, left arm, subs M75.42 Impingement syndrome of left shoulder M19.012 Primary osteoarthritis, left shoulder Office Visit 08/24/2016 10:15a Blake Poole S46.012D Strain of Services Of MD garrett/gela the [facility]. rotator cuff of left shoulder, subs M19.212 Secondary osteoarthritis, left shoulder S46.102A Unsp injury of musc/fasc/tend long hd bicep, left arm, init M75.22 Bicipital tendinitis, left shoulder Office Visit 05/10/2016 9:15a Orthopedic Jevon Alejandra, S46.012D Strain of Services Of M.D. musc/tend the C.M.A. rotator cuff of left shoulder, subs S46.012D Strain of musc/tend the rotator cuff of left shoulder, subs Office Visit 03/29/2016 Orthopedic Jevon Alejandra, M19.012 Primary 1:45p Services Of M.D. osteoarthritis, left C.M.A. shoulder S46.012A Strain of musc/tend the rotator cuff of left shoulder, init M19.012 Primary osteoarthritis, left shoulder Office Visit 02/23/2016 Orthopedic Jevon Alejandra, M19.012 Primary 10:30a Services Of M.D. osteoarthritis, left C.M.A. shoulder M19.012 Primary osteoarthritis, left shoulder Office Visit 11/11/2013 2:37p [facility] Oumar Crocker, 786.51 Pain Precordial Assockasey M.D. Hospitalists 272.2 Hyperlipidemia Mixed 250.00 Diabetes Mellitus W/O Compl Type II Or Unspec Controlled Office Visit 11/10/2013 [facility] [employer] 786.51 Pain Precordial 2:36p Assoc,kasey Reynolds M.D. Hospitalists Hospitalist 272.2 Hyperlipidemia Mixed 250.00 Diabetes Mellitus W/O Compl Type II Or Unspec Controlled Office Visit 04/06/2013 9:00a Orthopedic Jevon Alejandra, 727.51 Cyst Synovial Services Of [place] Popliteal Space 836.0 Dislocation Knee Tear Of Medial Cartilage Or Meniscus Curren Office Visit 03/08/2013 10:45a Orthopedic Jevon Alejandra, 727.51 Cyst Synovial Services Of [place] Popliteal Space 836.0 Dislocation Knee Tear Of Medial Cartilage Or Meniscus [facility] Office 01/26/2011 [place] Deonna Guerrero 794.31 Electrocardiogram Visit 11:46a Cardiology Padmini Mason (ECG) (EKG) Abnormal 786.50 Pain Chest Unspec 250.00 Diabetes Mellitus W/O Compl Type II Or Unspec Controlled 272.4 Hyperlipidemia Other Unspec 401.1 Hypertension Benign Office Visit 12/09/2010 3:45p Orthopedic Jevon Alejandra, 715.96 Osteoarthrosis Services Of Padmini Unspec Yaa Or C.[facility]. Localized Lower Leg 727.51 Cyst Synovial Popliteal Space Plan of Treatment 11/16/2018 - Daron Poole, MDS46.012D Strain of muscle(s) and tendon(s) of the rotator cuff of lefNew Xrays:MRI Shoulder Left W/O, Ordered: 11/16/18Follow up: Follow up: after MRIM19.212 Secondary osteoarthritis, left shoulder
[2018-11-27 19:00] VITALS: BP 111/67
--- NOTE | 2018-11-27 20:09 | UC ---
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 c/o ongoing pain/swelling. - History of Current Complaint Chief Complaint: UCLowerExtremity Stated Complaint: RIGHT FOOT COMPLAINT Time Seen by Provider: 11/27/18 19:11 Hx Obtained From: Patient Hx Last Menstrual Period: hysterectomy 2007 Onset/Duration: Sudden Onset Timing: Constant Pain Intensity: 6 Associated Signs & Symptoms: Negative: Fever - Allergy/Home Medications Allergies/Adverse Reactions: Allergies Allergy/AdvReac Type Severity Reaction Status Date / Time Adhesive Tape Allergy Intermediate Rash Verified 10/12/18 21:06 lisinopril Allergy Coughing Verified 10/12/18 21:06 PMH/Surg Hx/FS Hx/Imm Hx Endocrine History: Diabetes, Dyslipidemia Cardiovascular History: Hypertension Other History Of: Negative For: HIV, Hepatitis B, Hepatitis C, Anticoagulant Therapy - Surgical History Surgical History: Yes Surgery Procedure, Year, and Place: C section x 2 1986,1984, LEFT AND RIGHT Hand Surgery x 2: L ligaments and Rt HAND tendon repair, Gastric Banding 2005 WITH PORT, Hysterectomy 2007. left shoulder CLAVICLE REPAIR 2015, 06/2017 - Family History Known Family History: Positive: Cardiac Disease, Hypertension, Diabetes - Social History Alcohol Use: Rare Substance Use Type: None Substance Use Comment - Amount & Last Used: 16 Smoking Status (MU): Never Smoked Tobacco Type: Cigarettes Length of Time of Smoking/Using Tobacco: SMOKED FOR ~1 MONTH IN THE '90S Have You Smoked in the Last Year: No - Immunization History Most Recent Influenza Vaccination: 2017 Most Recent Tetanus Shot: up to date Most Recent Pneumonia Vaccination: refuses Vaccination Up to Date: Yes Review of Systems All Other Systems Reviewed And Are Negative: Yes Constitutional: Positive: Negative Skin: Positive: Negative Eyes: Positive: Negative ENT: Positive: Negative Respiratory: Positive: Negative Cardiovascular: Positive: Negative Gastrointestinal: Positive: Negative Genitourinary: Positive: Negative Motor: Positive: Negative Neurovascular: Positive: Negative Neurological: Positive: Negative Psychological: Positive: Negative Physical Exam Triage Information Reviewed: Yes Appearance: Well-Appearing Vital Signs: Initial Vital Signs Temp 98.1 F 11/27/18 18:55 Pulse 83 11/27/18 18:55 Resp 20 11/27/18 18:55 BP 111/67 11/27/18 18:55 Pulse Ox 98 11/27/18 18:55 Vital Signs Reviewed: Yes Eyes: Positive: Conjunctiva Clear ENT: Positive: Normal ENT inspection Neck: Positive: Supple Respiratory: Positive: Lungs clear Cardiovascular: Positive: RRR Abdomen Description: Positive: Nontender Bowel Sounds: Positive: Present Musculoskeletal: Positive: Other: - R ankle non tender. Dorsal-lateral R foot with mild bruising and swelling plus tenderness. Toes have full s/v/m function. No warmth, red or streaking. Neurological: Positive: Alert Psychological: Positive: Age Appropriate Behavior Skin Exam: Normal Diagnostics - Radiology No standard instances Radiology Interpretation Completed By: ED Physician - WET READ L FOOT=NO FX Course/Dx - Differential Dx - Multi-Symptom Differential Diagnoses: Other - NO FX ON XRAY. NO CONCERN FOR INFECTION - Diagnoses Provider Diagnosis: Contusion of right foot Discharge - Sign-Out/Discharge Documenting (check all that apply): Patient Departure All imaging exams completed and their final reports reviewed: No - Discharge Plan Condition: Stable Disposition: HOME Patient Education Materials: Foot Contusion (ED) Referrals: Cat Cotton NP [Primary Care Provider] - 5 Days Additional Instructions: POST OP SHOE FOR COMFORT - Billing Disposition and Condition Condition: STABLE Disposition: Home
--- NOTE | 2018-11-28 07:54 | UC ---
- Progress Note Progress Note: left foot xray : IMPRESSION: NO EVIDENCE FOR FRACTURE. Course/Dx - Diagnoses Provider Diagnoses: Contusion of right foot Discharge - Sign-Out/Discharge Documenting (check all that apply): Patient Departure All imaging exams completed and their final reports reviewed: Yes - Discharge Plan Condition: Stable Disposition: HOME Patient Education Materials: Foot Contusion (ED) Referrals: Cat Cotton NP [Primary Care Provider] - 5 Days Additional Instructions: POST OP SHOE FOR COMFORT - Billing Disposition and Condition Condition: STABLE Disposition: Home
== END 2018-11-27 20:20 | disposition home or self-care (01) ==
LOC: UCCORT 16:54
DX: S90.31XA Contusion of right foot, initial encounter (principal); E11.9 Type 2 diabetes mellitus without complications; I10 Essential (primary) hypertension; Z88.8 Allergy status to other drugs, medicaments and biological substances; Z91.09 Other allergy status, other than to drugs and biological substances; W20.8XXA Other cause of strike by thrown, projected or falling object, initial encounter; Y92.9 Unspecified place or not applicable
CPT/HCPCS: 99212; G0463

== ENCOUNTER 2019-04-18 15:16 | Emergency (ER) | payer BC, MEDICAID, OTHER ==
--- OUTSIDE RECORDS SUMMARY | 2019-04-18 15:38 | XMS REPORT | Continuity of Care Document ---
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 Cat Cotton PNP-BC, KRISS, Ibclc Primary Care Physician Unavailable Payers Date Identification Numbers Payment Provider Subscriber Policy Number: [id number] Medicaid Mindy Whittington PayID: [id number] [address] [place] [address] Family History Date Family Member(s) Observation Comments Father due to Congestive Heart Failure () Father Lung Cancer Father due to Lung Cancer () Father Diabetes Father due to Diabetes () Father CHF Mother due to Diabetes () Mother due to COPD () Mother due to Cancer () - Larynx First Son Hypertension Second Son No Current Problems First Sister due to Lung Cancer () First Sister due to Breast Cancer () Second Sister due to Pancreatic Cancer () Social History Type Date Description Comments Sex Unknown Lives With Occupation 12/04/2018 [employer] employment pending ETOH Use Rarely consumes alcohol Tobacco Use Start: Unknown End: Patient is a former smoker 1991 x1 month then Unknown quit Smoking Status Reviewed: 03/21/19 Patient is a former smoker 1991 x1 month then quit Allergies, Adverse Reactions, Alerts Active Allergies Reaction Severity Comments Date Lisinopril 12/04/2018 Medications Active Medications SIG Qnty Indications Ordering Provider Date Omeprazole 1 by mouth every 30caps K21.9 Cat Cotton, 03/21/2019 20mg day PNP-BC, STRIKER OUT, Capsules DR Reyes Cpap Supplies as directed 1units G47.33 Cat Cotton, 03/21/2019 PNP-BC, STRIKER OUT, Ibclc Guaifenesin take one tablet 30tabs Dennise Rousseau FNP 01/22/2019 400mg by mouth every 4 Tablets hours as needed for cough Benzonatate Take 1 capsule by 30caps Dennise Rousseau FNP 01/22/2019 150mg mouth every 8 Capsules hours as needed for cough Atorvastatin Calcium take one tablet 30tabs Cat Cotton, by mouth every UCHE-KAILA, STRIKER OUT, 20mg Tablets day Ibclc Metformin HCL take one tablet 60tabs Cat Cotton, 500mg by mouth twice a PNP-BC, STRIKER OUT, Tablets day Ibclc Metoprolol Succinate take one tablet 30tabs Cat Cotton, ER by mouth every AN, STRIKER OUT, 50mg Tablets ER 24HR day Ibclc Losartan Potassium take one tablet 30tabs Cat Cotton, by mouth every AN, STRIKER OUT, 100mg Tablets day Ibclc Gabapentin take three 90caps Cat Cotton, 100mg capsules by mouth UCHE-BC, STRIKER OUT, Capsules at bedtime Ibclc Vital Signs Date Vital Result Comment 03/21/2019 10:51am BP Systolic Sitting Right Arm 126 mmHg BP Diastolic Sitting Right Arm 80 mmHg Body Temperature 97.7 F Heart Rate 70 /min Height 66 inches 5'6" Weight 310.00 lb BMI (Body Mass Index) 50.0 kg/m2 BSA (Body Surface Area) 2.41 m2 Gibson body weight in kilograms 59 kg O2 % BldC Oximetry 98 % Pain Level 0 01/22/2019 2:42pm BP Systolic 124 mmHg BP Diastolic 80 mmHg Body Temperature 98.4 F Heart Rate 84 /min Respiratory Rate 20 /min Height 66 inches 5'6" Weight 313.00 lb BMI (Body Mass Index) 50.5 kg/m2 BSA (Body Surface Area) 2.42 m2 Gibson body weight in kilograms 59 kg O2 % BldC Oximetry 98 % 12/04/2018 2:12pm BP Systolic Sitting Right Arm 132 mmHg BP Diastolic Sitting Right Arm 80 mmHg Body Temperature 97.8 F Heart Rate 74 /min Height 66 inches 5'6" Weight 316.00 lb BMI (Body Mass Index) 51.0 kg/m2 BSA (Body Surface Area) 2.43 m2 Gibson body weight in kilograms 59 kg O2 % BldC Oximetry 97 % Results Test Date Facility Test Result H/L Range Note Glycohemoglobin A1c [facility] Glycohemoglobin 7.1 % High 4.2-6.3 1 , [address] (A1c) [place] [address] [phone] eAG 157 mg/dL Microalbumin,Random 03/21/2019 [facility] Microalbumin,Urine < 5.0 < 20.[address] mg/[place] [address] [phone] CBC W/Automated Diff 03/21/2019 [facility] White Blood Count 8.5 N 3.1-[address] K/uL .7 [place] [address] [phone] Red Blood Count 4.67 M/uL N 3.90-5.40 Hemoglobin 12.0 gm/dL N 11.6-15.8 Hematocrit 39.7 % N 36.0-46.1 Mean Cell Volume 85.0 fl N 80.9-99.0 Mean Corpuscular HGB 25.7 pg Low 25.9-32.7 Mean Corpuscular HGB Conc 30.2 g/dL Low 30.8-34.3 Platelet Count 369 K/uL High 155-360 Red Cell Distri Width SD 41.0 fl N 36-47 Red Cell Distri Width %CV 13.2 % N 11.7-14.4 Mean Platelet Volume 9.8 fl N 8.9-12.4 Neut% 59.4 % N 40.4-72.8 Lymph % 29.6 % N 20.0-42.0 Mesa % 8.2 % N 4.3-13.2 Eo% 1.6 % N 0.0-6.6 Bas% 0.8 % N 0.0-1.1 Immature Grans 0.4 % N 0.0-5.0 NRBC % 0.0 /100WBC < 10/ 100 WBC Neut# 5.05 K/uL N 1.8-7.0 Lymph # 2.52 K/uL N 1.0-4.0 Mesa # 0.70 K/uL N 0.3-0.9 Eos # 0.14 K/uL N 0.0-0.5 Baso # 0.07 K/uL N 0.0-0.1 Immature Grans Absolute 0.03 K/uL NRBC # 0.00 K/uL Comprehensive Metabolic 03/21/2019 [facility] Glucose 121 mg/dL High 74-106 Panel [address] [place], [place] [id number] [phone] BUN 6 mg/dL Low 7-18 Creatinine 0.8 mg/dL N 0.6-1.3 Glom Filtration Rate, Estimate >60 mL/min >60 If >60 mL/min >60 3 BUN/Creat 7.5 ratio Sodium 140 mmol/L N 136-145 Potassium 3.9 mmol/L N 3.5-5.1 Chloride 106 mmol/L N 98-107 Carbon Dioxide 31 mmol/L N 21-32 Anion Gap 3 mEq/L Low 8-16 Calcium 8.9 mg/dL N 8.5-10.1 Total Protein 7.6 g/dL N 6.4-8.2 Albumin 3.4 g/dL N 3.4-5.0 Globulin 4.2 g/dL N 1.9-4.3 Alb/Glob 0.8 ratio Bilirubin,Total 0.7 mg/dL N 0.2-1.0 Sgot/Ast 19 U/L N 15-37 SGPT/Alt 24 U/L N 12-78 Alkaline Phosphatase 105 U/L N 45-117 LDL Cholesterol Profile 03/21/2019 [facility] Cholesterol 158 mg/dL <200 4 [address] [place], [place] [id number] [phone] Triglycerides 129 mg/dL <150 5 HDL Cholesterol 46 mg/dL >40 6 LDL-Cholesterol 86 mg/dL < 100 7 Laboratory test 03/21/2019 [facility] Thyroid Stim 3.38 uIU/mL N 0.30-4.20 finding [address] [facility] [place] [address] [phone] Influenza A/B 01/20/2019 [facility] Influenza A Negative (Negative) 8 Antigen [address] [facility] [place] [address] [phone] Influenza B Antigen Negative (Negative) 9 Rapid Influenza 10/12/2018 [facility] Influenza A NEGATIVE Negative 10 A & B Molecular [phone] Molecular Influenza B Molecular NEGATIVE Negative Laboratory test 09/07/2018 [facility] Rapid Strep Negative Negative 11, 12 finding [address] [place] [address] [phone] Throat Strep Screen NO BETA STREPTOC <SEE NOTE> 13 Serum or plasma 05/24/2018 N2N/CCD Import Serum or plasma 3.5 3.4-5.0 albumin measurement albumin measurement (mass/volume) (mass/volume) Serum or plasma 05/24/2018 N2N/CCD Import Serum or plasma 109 45-117 alkaline phosphatase alkaline phosphatase measurement ( measurement (enzymatic activity/volume) Serum or plasma 05/24/2018 N2N/CCD Import Serum or plasma 19 15-37 aspartate aspartate aminotransferase aminotransferase measure measurement (enzymatic activity/volume) Serum or plasma 05/24/2018 N2N/CCD Import Serum or plasma 9.1 8.5-10.1 calcium measurement calcium measurement (mass/volume) (mass/volume) Serum or plasma 05/24/2018 N2N/CCD Import Serum or plasma 0.9 0.6-1.3 creatinine creatinine measurement measurement (mass/volum (mass/volume) Serum or plasma 05/24/2018 N2N/CCD Import Serum or plasma 109 High 74- 106 glucose measurement glucose measurement (mass/volume) (mass/volume) Serum or plasma 05/24/2018 N2N/CCD Import Serum or plasma 1.8 1.8-2.4 magnesium magnesium measurement measurement (mass/volume (mass/volume) Serum or plasma 05/24/2018 N2N/CCD Import Serum or plasma 7.8 6.4-8.2 protein measurement protein measurement (mass/volume) (mass/volume) Serum or plasma 05/24/2018 N2N/CCD Import Serum or plasma 0.6 0.2-1.0 total bilirubin total bilirubin measurement (mass/ measurement (mass/volume) Serum or plasma urea 05/24/2018 N2N/CCD Import Serum or plasma urea 8 7- 18 nitrogen measurement nitrogen measurement (mass/vo (mass/volume) Serum or plasma urea 05/24/2018 N2N/CCD Import Serum or plasma urea 8.8 nitrogen/creatinine nitrogen/creatinine mass rati mass ratio Serum sodium 05/24/2018 N2N/CCD Import Serum sodium 144 136-145 measurement measurement Automated blood 05/24/2018 N2N/CCD Import Automated blood 2.02 1.0-4.0 lymphocyte count lymphocyte count (number/volume) (number/volume) Automated blood 05/24/2018 N2N/CCD Import Automated blood 38.2 36.0- 46.1 hematocrit (volume hematocrit (volume fraction) fraction) Automated blood 05/24/2018 N2N/CCD Import Automated blood 0.09 0.0-0.5 eosinophil count eosinophil count Automated blood 05/24/2018 N2N/CCD Import Automated blood 0.04 0.0-0.1 basophil count basophil count (count/volume) (count/volume) Anion Gap SerPl-sCnc 05/24/2018 N2N/CCD Import Anion Gap SerPl-sCnc 7 Low 8-16 Albumin/Glob SerPl 05/24/2018 N2N/CCD Import Albumin/Glob SerPl 0.8 Alt SerPl-cCnc 05/24/2018 N2N/CCD Import Alt SerPl-cCnc 17 12-78 Automated blood 05/24/2018 N2N/CCD Import Automated blood 321 155-360 platelet count platelet count Automated blood 05/24/2018 N2N/CCD Import Automated blood 8.9 8.9-12.4 platelet mean volume platelet mean volume measurement measurement Automated 05/24/2018 N2N/CCD Import Automated 26.8 25.9-32.7 erythrocyte mean erythrocyte mean corpuscular corpuscular hemoglobin hemoglobin (mass per erythrocyte) Automated 05/24/2018 N2N/CCD Import Automated 32.5 30.8-34.3 erythrocyte mean erythrocyte mean corpuscular corpuscular hemoglobin hemoglobin concentration measurement (mass/volume) Automated 05/24/2018 N2N/CCD Import Automated 82.7 80.9-99.0 erythrocyte mean erythrocyte mean corpuscular volume corpuscular volume Basophils/leuk NFr 05/24/2018 N2N/CCD Import Basophils/leuk NFr 0.5 0.0- 1.1 Bld Auto Bld Auto Blood erythrocytes 05/24/2018 N2N/CCD Import Blood erythrocytes 4.62 3.90-5.40 automated count automated count (number/volume) (number/volume) Blood hemoglobin 05/24/2018 N2N/CCD Import Blood hemoglobin 12.4 11.6- 15.8 measurement measurement (mass/volume) (mass/volume) Blood leukocytes 05/24/2018 N2N/CCD Import Blood leukocytes 8.1 3.1- 10.7 automated count automated count (number/volume) (number/volume) Blood monocytes 05/24/2018 N2N/CCD Import Blood monocytes 0.56 0.3-0.9 automated count automated count (number/volume) (number/volume) Chloride SerPl-sCnc 05/24/2018 N2N/CCD Import Chloride SerPl-sCnc 108 High 98-107 Eosinophil/leuk NFr 05/24/2018 N2N/CCD Import Eosinophil/leuk NFr 1.1 0.0-6.6 Bld Auto Bld Auto Globulin Ser 05/24/2018 N2N/CCD Import Globulin Ser 4.3 1.9-4.3 Calc-mCnc Calc-mCnc Lymphocytes/leuk NFr 05/24/2018 N2N/CCD Import Lymphocytes/leuk NFr 24.9 20.0-42.0 Bld Auto Bld Auto Monocytes/leuk NFr 05/24/2018 N2N/CCD Import Monocytes/leuk NFr 6.9 4.3- 13.2 Bld Auto Bld Auto Neutrophils # Bld 05/24/2018 N2N/CCD Import Neutrophils # Bld 5.40 1.8- 7.0 Auto Auto Neutrophils/leuk NFr 05/24/2018 N2N/CCD Import Neutrophils/leuk NFr 66.6 40.4-72.8 Bld Auto Bld Auto Potassium SerPl-sCnc 05/24/2018 N2N/CCD Import Potassium SerPl-sCnc 3.6 3.5-5.1 RDW RBC Auto 05/24/2018 N2N/CCD Import RDW RBC Auto 40.3 3-47 RDW RBC Auto-Rto 05/24/2018 N2N/CCD Import RDW RBC Auto-Rto 13.8 11.7- 14.4 Serum carbon dioxide 05/24/2018 N2N/CCD Import Serum carbon dioxide 29 21-32 measurement measurement 1 E11.9 I10 E66.9 2 Elevated levels of HbA1c suggest the need for more aggressive treatment of glycemia. The [place] [employer] recommends that a primary goal of therapy should be a HbA1c of <7% and that physicians should re-evaluate the treatment regimen in patients with HbA1c values consistently >8%. 3 Note: Persistent reduction for 3 months or more in an eGFR <60 mL/min/1.73 m2 defines CKD. Patients with eGFR values >/=60 mL/min/1.73 m2 may also have CKD if evidence of persistent proteinuria is present. The original MDRD equation for estimated GFR is not valid for patients less than 18 years of age. Additional information may be found at www.kdoqi.org. 4 Reference Guidelines*: Desirable: ........... < 200 mg/dL Borderline High: ..... 200-239 mg/dL High: ................ >=240 mg/dL * The National Cholesterol Education Program (NCEP) 5 Reference Guidelines*: Normal: ............. < 150 mg/dL Borderline High: .... 150-199 mg/dL High: ............... 200-499 mg/dL Very High: .......... > 500 mg/dL * Source: National Cholesterol Education Program (NCEP) 6 Reference Guidelines*: Low HDL: ..... < 40 mg/dL Normal: ..... 40-60 mg/dL Desirable: ... > 60 mg/dL *The National Cholesterol Education Program(NCEP) 7 Reference Guidelines*: Optimal:........... <100 mg/dL Near Optimal....... 100-129 mg/dL Borderline High.... 130-159 mg/dL High............... 160-189 mg/dL Very High.......... >=190 mg/dL * Source: National Cholesterol Education Program (NCEP) 8 ?FLU 9 Please Note: A POSITIVE result for influenza A and/or B antigen does not rule out a co-infection with other pathogens or identify any specific influenza A virus subtype. A NEGATIVE result for influenza A and/or B antigen does not preclude influenza virus infection and should not be the sole basis for treatment or other management decisions, since the antigen present in the specimen may be below the detection limit of the test. A NEGATIVE result is PRESUMPTIVE and it is recommended these results be confirmed by virus culture or an FDA-cleared influenza A and B molecular assay. Method: BD Veritor Chromatographic immunoassay 10 R&D Lab Technician: [id number] [facility] 12 Infection due to Strep A cannot be ruled-out because the antigen present in the sample may be below the detection limit of the test. Culture confirmation of negative result is in progress Method: BD Veritor Chromatographic immunoassay 13 NO BETA STREPTOCOCCI ISOLATED Procedures Date Code Description Status 03/21/2019 52415 Brief Emotional/Behav Assessment W/ Scoring Doc Per Completed Standard Inst Encounters Type Date Location Provider Dx Diagnosis Office Visit 03/21/2019 [facility] Cat Cotton, E11.9 Type 2 diabetes 11:15a [facility] PNP-BC, STRIKER OUT, mellitus without Ibclc complications I10 Essential (primary) hypertension E66.9 Obesity, unspecified M79.7 Fibromyalgia K21.9 Gastro-esophageal reflux disease without esophagitis F33.1 Major depressive disorder, recurrent, moderate Office Visit 01/22/2019 2:45p [facility] Dennise Rousseau, J00 Acute nasopharyngitis [facility] STRIKER OUT [common cold] R05 Cough Office Visit 12/04/2018 2:00p [facility] Cat Cotton, E11.[address] [facility] PNP-BC, STRIKER OUT, mellitus without Ibclc complications M79.7 Fibromyalgia E78.5 Hyperlipidemia, unspecified I10 Essential (primary) hypertension E66.9 Obesity, unspecified Z12.31 Encntr screen mammogram for malignant neoplasm of breast Z11.1 Encounter for screening for respiratory tuberculosis Plan of Treatment Future Appointment(s):06/18/2019 9:30 am - Cat Cotton PNP-BC, STRIKER OUT, Ibclc at [facility]01/22/2019 - Dennise Rousseau FNPJ00 Acute nasopharyngitis [common cold]Comments:-Your body needs REST! Aim to get at least 8 hours of sleep a night while feeling ill.-Push fluids! Water is the best option. Aim for at least 70oz of water every single day. Hot tea may help soothe your throat. Avoid caffeinated drinks (soda, coffee) and alcohol while you are sick-these can make dehydration worse.-Saline nasal spray can help improve sinus drainage, this can be done 2-3x/day.-A cool mist humidifier in the bedroom is helpful for thinning secretions and drainage.-Avoid smoke and otherpollutants like pollen/grass, pet dander, and mold.-Heated mist from a hot shower, or hot moist towels wrapped around the face helps sinus and nasal pain by liquifying secretions.-Use ibuprofen ("Advil"/"Motrin") 400-600mg every 6-8 hours, acetaminophen ("Tylenol") 650mg every 4-6 hours for pain or body aches. Always take ibuprofen with food.-Guaifenesin ("Mucinex") 200-400mg every 4 hours as needed helps to liquify secretions and helps drainage, but make sure to drink PLENTY of fluids while taking this as it can be dehydrating.-You may develop a cough later in your illness, a cough suppressant like dextromethorphan ("Delsym"/"Robitussin") can help you sleep. Vicks rubbed onto your chest and neck can also help.-Antibiotics, antivirals, and antihistamines have shown to be ineffective in the treatment of the common cold.Hand hygiene is the most effective way to prevent the spread of respiratory viruses!-Call if no improvement in 3-5 days, worsening signs/symptoms, new concerns, or fever over 101 for more than 3 days.R05 CoughAllNew Medication:Guaifenesin 400 mg - take one tablet by mouth every 4 hours as needed for coughBenzonatate 150 mg - Take 1 capsule by mouth every 8 hours as needed for cough
[2019-04-18 15:42] VITALS: BP 146/72
--- NOTE | 2019-04-18 15:51 | UC ---
UC General HPI - HPI Summary HPI Summary: pt is c/o a 2 day hx of pain to her R wrist, she points to the ulnar side. she denies any hx of injury. when question about over use, she recalled having been to the [employer] [place] 3 days in a row while on vacation and was playing machines where the wrist was resting on an ledge and she was constantly using the wrist to tap the machine. this was just before the onset. - History of Current Complaint Stated Complaint: RIGHT HAND PAIN Time Seen by Provider: 04/18/19 15:36 Hx Obtained From: Patient Hx Last Menstrual Period: hysterectomy 2007 Timing: Constant Aggravating: movement Associated Signs & Symptoms: Negative: Weakness - Allergy/Home Medications Allergies/Adverse Reactions: Allergies Allergy/AdvReac Type Severity Reaction Status Date / Time Adhesive Tape Allergy Intermediate Rash Verified 04/18/19 15:37 lisinopril Allergy Coughing Verified 04/18/19 15:37 Home Medications: Home Medications Omeprazole 1 tab PO DAILY 04/18/19 [History Confirmed 04/18/19] PMH/Surg Hx/FS Hx/Imm Hx Endocrine History: Diabetes, Dyslipidemia Cardiovascular History: Hypertension GI/ History: Gastroesophageal Reflux Other History Of: Negative For: HIV, Hepatitis B, Hepatitis C, Anticoagulant Therapy - Surgical History Surgical History: Yes Surgery Procedure, Year, and Place: C section x 2 1986,1984, LEFT AND RIGHT Hand Surgery x 2: L ligaments and Rt HAND tendon repair, Gastric Banding 2005 WITH PORT, Hysterectomy 2007. left shoulder CLAVICLE REPAIR 2015, 06/2017 - Family History Known Family History: Positive: Cardiac Disease, Hypertension, Diabetes - Social History Alcohol Use: Rare Substance Use Type: None Substance Use Comment - Amount & Last Used: 16 Smoking Status (MU): Never Smoked Tobacco Type: Cigarettes Length of Time of Smoking/Using Tobacco: SMOKED FOR ~1 MONTH IN THE '90S Have You Smoked in the Last Year: No - Immunization History Most Recent Influenza Vaccination: 2018 Most Recent Tetanus Shot: up to date Most Recent Pneumonia Vaccination: refuses Vaccination Up to Date: Yes Review of Systems All Other Systems Reviewed And Are Negative: No Constitutional: Negative: Fever, Chills Skin: Negative: Rash Musculoskeletal: Negative: Decreased ROM Neurological: Negative: Weakness, Numbness Physical Exam Triage Information Reviewed: Yes Appearance: Well-Appearing Vital Signs Reviewed: Yes Eyes: Positive: Conjunctiva Clear Neck: Positive: Supple Respiratory: Positive: No respiratory distress Cardiovascular: Positive: RRR Musculoskeletal: Positive: Other: - R hand: volar scar over 5th finger into palm from tendon repair. the 5th digit has some mild chronic flexion due to scar which is chronic and unchanged. Rest of wrist/hand has not gross deformity or swelling and no rash. Pt notes tenderness with palpation over the ulnar side of wrist over the connective tissues. Aside from the 5th finger the wrist/hand has full s/v/m function.. Negative: ROM Intact Neurological: Positive: Alert Psychological: Positive: Age Appropriate Behavior Skin Exam: Normal Skin: Negative: Rashes Course/Dx - Differential Dx - Multi-Symptom Differential Diagnoses: Other - no concern for bony pathology or infection. hx supports over use. - Diagnoses Provider Diagnosis: Tendinitis Discharge - Sign-Out/Discharge Documenting (check all that apply): Patient Departure All imaging exams completed and their final reports reviewed: No Studies - Discharge Plan Condition: Stable Disposition: HOME Patient Education Materials: Tendinitis (ED) Referrals: Cat Cotton NP [Primary Care Provider] - If Needed Nic Lester MD [Medical Doctor] - Additional Instructions: FOLLOW UP WITH DR LESTER(ORTHOPEDICS) IF NOT BETTER IN 5-7 DAYS OR SOONER IF WORSE. TAKE YOUR 800MG OF MOTRIN EVERY 8 HOURS X 5 DAYS THEN NEEDED. - Billing Disposition and Condition Condition: STABLE Disposition: Home
== END 2019-04-18 16:01 | disposition home or self-care (01) ==
LOC: UCCORT 15:16
DX: M77.9 Enthesopathy, unspecified (principal); W22.8XXA Striking against or struck by other objects, initial encounter; Y92.59 Other trade areas as the place of occurrence of the external cause; I10 Essential (primary) hypertension; E11.9 Type 2 diabetes mellitus without complications; K21.9 Gastro-esophageal reflux disease without esophagitis; Z87.891 Personal history of nicotine dependence
CPT/HCPCS: 99212; G0463

== ENCOUNTER 2019-10-28 14:26 | Emergency (ER) | payer OTHER ==
--- OUTSIDE RECORDS SUMMARY | 2019-10-28 15:48 | XMS REPORT | Continuity of Care Document ---
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 Problems Description No Information Available Social History Type Date Description Comments Sex Unknown ETOH Use Rarely consumes alcohol Tobacco Use Start: Unknown End: Patient is a former smoker 1991 x1 month then Unknown quit Smoking Status Reviewed: 08/07/19 Patient is a former smoker 1991 x1 month then quit Allergies, Adverse Reactions, Alerts Active Allergies Reaction Severity Comments Date Lisinopril 12/04/2018 Medications Active Medications SIG Qnty Indications Ordering Date Provider Abdiel Laxative 1 tab by mouth 60tabs K59.00 Cat Cotton, 08/07/2019 25mg twice a day as PNP-BC, DISC SANDER, Tablets needed Ibclc Freestyle Lite Blood as directed 1units E11.9 Cat Cotton, 06/21/2019 Glucose Monitoring PNP-BC, DISC SANDER, System Ibclc Device Freestyle Lite Test check blood 100units E11.9 Cat Cotton, 06/21/2019 sugars qd-bid PNP-BC, DISC SANDER, Strips Ibclc Freestyle Lancets to test blood 150units E11.9 Cat Cotton, 06/21/2019 Misc gluose qd-bid PNP-BC, DISC SANDER, Ibclc Omeprazole Take One Capsule 30caps K21.9 Cat Cotton, 03/21/2019 20mg By Mouth Every PNP-BC, DISC SANDER, Capsules Day Ibclc Cpap Supplies as directed 1units G47.33 Cat Cotton, 03/21/2019 PNP-BC, DISC SANDER, Ibclc Guaifenesin take one tablet 30tabs Dennise Rousseau, 01/22/2019 400mg by mouth every 4 DISC SANDER Tablets hours as needed for cough Benzonatate Take 1 capsule 30caps Dennise Rousseau, 01/22/2019 150mg by mouth every 8 DISC SANDER Capsules hours as needed for cough Atorvastatin Calcium Take One Tablet 30tabs Cat Cotton, By Mouth Every PNP-KAILA, DISC SANDER, 20mg Tablets Day Ibclc Metformin HCL Take One Tablet 60tabs Cat Cotton, 500mg By Mouth Twice A PNP-KAILA, DISC SANDER, Tablets Day Ibclc Metoprolol Succinate Take One Tablet 30tabs Cat Cotton, ER By Mouth Every AN, KRISS, 50mg Tablets ER 24HR Day Ibclc Losartan Potassium Take One Tablet 30tabs Cat Cotton, By Mouth Every KRISS NOLAN, 100mg Tablets Day Ibclc Gabapentin Take Three 90caps Cat Cotton, 100mg Capsules By PNPYAMILA, DISC SANDER, Capsules Mouth AT Bedtime Ibclc Immunizations Description No Information Available Vital Signs Date Vital Result Comment 08/07/2019 3:13pm BP Systolic 124 mmHg BP Diastolic 78 mmHg Body Temperature 98.4 F Heart Rate 62 /min Respiratory Rate 17 /min Height 66 inches 5'6" Weight 317.00 lb BMI (Body Mass Index) 51.2 kg/m2 BSA (Body Surface Area) 2.43 m2 Elnora body weight in kilograms 59 kg 06/21/2019 3:19pm BP Systolic 120 mmHg BP Diastolic 80 mmHg Heart Rate 76 /min Respiratory Rate 16 /min Height 66 inches 5'6" Weight 316.00 lb BMI (Body Mass Index) 51.0 kg/m2 BSA (Body Surface Area) 2.43 m2 Elnora body weight in kilograms 59 kg Results Test Acquired Facility Test Result H/L Range Note Date Glycohemoglobin A1c 06/21/2019 [facility] Glycohemoglobin 7.1 % High 4.2-6.3 1 , [address] (A1c) [place] [address] [phone] eAG 157 mg/dL Aot Request 05/25/2019 [facility] Aot Request Test(s) added 3, [address] [place] [address] [phone] Tests to be added: troponin CBC W/Automated 05/25/2019 [facility] White Blood 9.1 K/uL Normal 3.1-10.[address] [place] [address] [phone] Red Blood Count 4.35 M/uL Normal 3.90-5.40 Hemoglobin 11.7 gm/dL Normal 11.6-15.8 Hematocrit 36.2 % Normal 36.0-46.1 Mean Cell Volume 83.2 fl Normal 80.9-99.0 Mean Corpuscular HGB 26.9 pg Normal 25.9-32.7 Mean Corpuscular HGB Conc 32.3 g/dL Normal 30.8-34.3 Platelet Count 318 K/uL Normal 155-360 Red Cell Distri Width SD 40.8 fl Normal 36-47 Red Cell Distri Width %CV 13.3 % Normal 11.7-14.4 Mean Platelet Volume 9.2 fl Normal 8.9-12.4 Neut% 58.8 % Normal 40.4-72.8 Lymph % 31.0 % Normal 20.0-42.0 Knott % 8.1 % Normal 4.3-13.2 Eo% 1.4 % Normal 0.0-6.6 Bas% 0.4 % Normal 0.0-1.1 Immature Grans 0.3 % Normal 0.0-5.0 NRBC % 0.0 /100WBC < 10/ 100 WBC Neut# 5.35 K/uL Normal 1.8-7.0 Lymph # 2.82 K/uL Normal 1.0-4.0 Knott # 0.74 K/uL Normal 0.3-0.9 Eos # 0.13 K/uL Normal 0.0-0.5 Baso # 0.04 K/uL Normal 0.0-0.1 Immature Grans Absolute 0.03 K/uL NRBC # 0.00 K/uL 1 E11.9 2 Elevated levels of HbA1c suggest the need for more aggressive treatment of glycemia. The [place] [employer] recommends that a primary goal of therapy should be a HbA1c of <7% and that physicians should re-evaluate the treatment regimen in patients with HbA1c values consistently >8%. 3 ?GALLBLADDER ISSUES 4 Tests: troponin Instructions: Procedures Description No Information Available Medical Devices Description No Information Available Encounters Type Date Location Provider Dx Diagnosis Office Visit 08/07/2019 Family Medicine Cat Cotton, M54.5 Low back pain 3:[address]p [address] PNP-BC, DISC SANDER, Ibclc K59.00 Constipation, unspecified Office Visit 06/21/2019 3:15p Family Medicine Cat Cotton, E11.9 Type [address] PNP-BC, DISC SANDER, mellitus without Ibclc complications I10 Essential (primary) hypertension K81.1 Chronic cholecystitis Assessments Date Code Description Provider 08/07/2019 M54.5 Low back pain Cat Cotton, PNP-BC, DISC SANDER, Ibclc 08/07/2019 K59.00 Constipation, unspecified Cat Cotton PNP-BC, DISC SANDER, Ibclc 06/21/2019 E11.9 Type 2 diabetes mellitus without Cat Cotton, PNP-BC, DISC SANDER , complications Ibclc 06/21/2019 I10 Essential (primary) hypertension Cat Cotton PNP-BC, DISC SANDER, Ibclc 06/21/2019 K81.1 Chronic cholecystitis Cat Cotton PNP-BC, DISC SANDER, Ibclc Plan of Treatment 08/07/2019 - Cat Cotton PNP-BC, DISC SANDER, EnkdmT81.5 Low back painNew Therapy: Physical TdxpuesG39.00 Constipation, unspecifiedNew Medication:Senna Laxative 25 mg - 1 tab by mouth twice a day as needed Functional Status Description No Information Available Mental Status Description No Information Available Referrals Refer to Dr Reason for Referral Status Appt Date Waldemar Recinos MD cholecystitis and concerned about her bad. Closed 07/30 [address] [place], [place] [address] [phone]
[2019-10-28 15:53] VITALS: BP 163/83
--- NOTE | 2019-10-28 16:25 | UC ---
Back Pain HPI - HPI Summary HPI Summary: C/O 2 month h/o low back pain, worsening with recent job [employer], being on her feet. Feet are bothering her as well. - History of Current Complaint Chief Complaint: UCBackPain Stated Complaint: LOWER BACK PAIN Time Seen by Provider: 10/28/19 16:07 Hx Obtained From: Patient Hx Last Menstrual Period: hysterectomy 2008 ?: No Onset/Duration: Gradual Onset, Lasting Weeks - 8, Worse Since - last couple of weeks with working. Timing: Constant Severity Initially: Mild Severity Currently: Moderate Pain Intensity: 6 Back Pain: Is Discrete @ - low back Character: Dull, Aching, Stiffness Aggravating Factor(s): Lifting, Bending, Walking Alleviating Factor(s): Rest, Position Associated Signs And Symptoms: Negative: Fever, Weakness, Numbness, Bladder Incontinence, Bowel Incontinence, Weight Loss, Pain with Weight Bearing - Allergies/Home Medications Allergies/Adverse Reactions: Allergies Allergy/AdvReac Type Severity Reaction Status Date / Time Adhesive Tape Allergy Intermediate Rash Verified 10/28/19 15:47 lisinopril Allergy Coughing Verified 10/28/19 15:47 PMH/Surg Hx/FS Hx/Imm Hx Endocrine History: Diabetes, Dyslipidemia Cardiovascular History: Hypertension Other History Of: Negative For: HIV, Hepatitis B, Hepatitis C, Anticoagulant Therapy - Surgical History Surgical History: Yes Surgery Procedure, Year, and Place: C section x 2 1986,1984, LEFT AND RIGHT Hand Surgery x 2: L ligaments and Rt HAND tendon repair, Gastric Banding 2005 WITH PORT, Hysterectomy 2007. left shoulder CLAVICLE REPAIR 2015, 06/2017 - Family History Known Family History: Positive: Cardiac Disease, Hypertension, Diabetes - Social History Occupation: Employed Part-time Lives: With Family Alcohol Use: None Substance Use Type: None Substance Use Comment - Amount & Last Used: 16 Smoking Status (MU): Never Smoked Tobacco Type: Cigarettes Length of Time of Smoking/Using Tobacco: SMOKED FOR ~1 MONTH IN THE '90S Have You Smoked in the Last Year: No - Immunization History Most Recent Influenza Vaccination: 2018 Most Recent Tetanus Shot: up to date Most Recent Pneumonia Vaccination: refuses Vaccination Up to Date: Yes Review of Systems All Other Systems Reviewed And Are Negative: Yes Musculoskeletal: Positive: Arthralgia, Myalgia Is Patient Immunocompromised?: No Physical Exam Triage Information Reviewed: Yes Appearance: Well-Appearing, Pain Distress - mild, Obese Vital Signs: Initial Vital Signs Temp 99.1 F 10/28/19 15:48 Pulse 83 10/28/19 15:48 Resp 20 10/28/19 15:48 BP 163/83 10/28/19 15:48 Pulse Ox 100 10/28/19 15:48 Vital Signs Reviewed: Yes Neck exam: Normal Respiratory Exam: Normal Cardiovascular Exam: Normal Musculoskeletal: Positive: ROM Limited @ - lumbar spine, Other: - tender over the sacrum and low lumbar spine. Neurological Exam: Normal Psychological Exam: Normal Skin Exam: Normal Back Pain Course/Dx - Differential Dx/Diagnosis Differential Diagnosis/HQI/PQRI: Arthritis, Herniated Disc, Strain, Sprain Provider Diagnosis: Low back pain, Morbid obesity Discharge ED - Sign-Out/Discharge Documenting (check all that apply): Patient Departure All imaging exams completed and their final reports reviewed: No Studies - Discharge Plan Condition: Stable Disposition: HOME Prescriptions: Diclofenac Sodium 50 mg PO BID PRN #60 tablet.dr SHERIN Reason: Pain - Moderate Patient Education Materials: Chronic Back Pain (DC) Referrals: Cat Cotton NP [Primary Care Provider] - Additional Instructions: Start home yoga. Search "beginning yoga for back pain" and do 10-15 minute routine every day. For weight low, 12 hour fast from supper to breakfast the next day. Nothing to eat or drink except water. - Billing Disposition and Condition Condition: STABLE Disposition: Home
== END 2019-10-28 16:37 | disposition home or self-care (01) ==
LOC: UCCORT 14:26
DX: M54.5 Low back pain (principal); E66.01 Morbid (severe) obesity due to excess calories; E11.9 Type 2 diabetes mellitus without complications; I10 Essential (primary) hypertension; Z91.09 Other allergy status, other than to drugs and biological substances; Z88.8 Allergy status to other drugs, medicaments and biological substances
CPT/HCPCS: 99212; G0463

== ENCOUNTER 2019-12-11 23:38 | Emergency (ER) | payer OTHER ==
--- OUTSIDE RECORDS SUMMARY | 2019-12-11 23:48 | XMS REPORT | Continuity of Care Document ---
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 Problems Active Problems Provider Date Localized, secondary osteoarthritis of the Daron Poole MD Onset: 07/06/2016 shoulder region Disorder of shoulder Daron Poole MD Onset: 07/06/2016 Injury of shoulder region Daron Poole MD Onset: 07/06/2016 Strain of muscle(s) and tendon(s) of the rotator Daron Poole MD Onset: cuff of left shoulder, subsequent encounter Brachial neuritis Daron Poole MD Onset: 09/20/2017 Social History Type Date Description Comments Sex Unknown Tobacco Use Start: Unknown Never Smoked Cigarettes Smoking Status Reviewed: 11/08/19 Never Smoked Cigarettes ETOH Use Denies alcohol use Tobacco Use Start: Unknown End: Unknown Denies Smoking Recreational Drug Use Never Used Drugs Allergies, Adverse Reactions, Alerts Active Allergies Reaction Severity Comments Date Lisinopril Cough 11/08/2019 Inactive Allergies NKDA 11/13/2013 Medications Active Medications SIG Qnty Indications Ordering Provider Date Gabapentin 1 by mouth once a 90caps Idania Radha 11/08/2019 300mg day LEENA Rios Capsules Omeprazole 1 by mouth every 30caps Idania Radha 11/08/2019 20mg day LEENA Rios Capsules Metoprolol Unknown Naproxen as needed, not Dave Sanabria, 500mg Tablets often according MD to pt FluFabiana Claudio Propionate MD eKhinde 50mcg/Act Suspension Losartan Potassium 1 by mouth every Unknown 25mg day Tablets Atorvastatin Calcium 1 by mouth every Unknown day Tablets Metformin HCL 1 by mouth twice Unknown 1000mg a day Tablets Medications Administered in Office Medication SIG Qnty Indications Ordering Provider Date Triamcinolone (Kenalog) Daron Poole MD 09/14/2018 Injection Triamcinolone (Kenalog) Daron Poole MD 09/14/2018 Injection Triamcinolone (Kenalog) Daron Poole MD 09/20/2017 Injection Triamcinolone (Kenalog) Cate Rodrigues PA-C 01/06/2017 Injection Depomedrol 40MG Jevon Alejandra M.D. 03/29/2016 Injection Depomedrol 40MG Jevon Alejandra M.D. 02/23/2016 Injection Depomedrol 80MG [place] Bra[place] M.D. 07/08/2011 Injection Immunizations Description No Information Available Vital Signs Date Vital Result Comment 11/08/2019 9:05am Height 66 inches 5'6" Weight 326.00 lb Heart Rate 70 /min BP Systolic 118 mmHg BP Diastolic 70 mmHg BMI (Body Mass Index) 52.6 kg/m2 11/16/2018 3:26pm Height 66 inches 5'6" Weight 315.00 lb Heart Rate 84 /min BP Systolic Sitting 130 mmHg BP Diastolic Sitting 94 mmHg Respiratory Rate 16 /min Pain Level 6 BMI (Body Mass Index) 50.8 kg/m2 Results Description No Information Available Procedures Description No Information Available Medical Devices Description No Information Available Encounters Description No Information Available Assessments Date Code Description Provider 11/08/2019 K21.0 Gastro-esophageal reflux disease with Idania Rios NP esophagitis 11/08/2019 Z01.818 Encounter for other preprocedural Idania Rios NP examination 11/08/2019 Z98.84 Bariatric surgery status Idania Rios NP Plan of Treatment No Information Available Functional Status Description No Information Available Mental Status Description No Information Available Referrals Description No Information Available
[2019-12-12 00:13] LABS: ABS Basophils 0.1 10^3/ul (0-0.2); ABS Eosinophils 0.1 10^3/ul (0-0.6); ABS Lymphocytes 3.1 10^3/ul (1.0-4.8); ABS Monocytes 0.7 10^3/ul (0-0.8); ABS Neutrophils 5.6 10^3/ul (1.5-7.7); Eosinophil % 1.3 %; Hematocrit 39 % (35-47); Hemoglobin 12.6 g/dL (12.0-16.0); Lymphocyte % 32.2 %; Mean Corpuscular HGB Conc 32 g/dL (31-36); Mean Corpuscular Hemoglobin 26 pg (27-31); Mean Corpuscular Volume 81 fL (80-97); Mean Platelet Volume 7.1 fL (7.4-10.4); Nucleated Red Blood Cells % 0.1; Platelet Count 344 10^3/uL (150-450); Red Blood Count 4.81 10^6 /uL (3.70-4.87); Red Cell Distribution Width 14 % (10-15); White Blood Count 9.7 10^3/uL (3.5-10.8)
[2019-12-12 00:32] LABS: Albumin 3.9 g/dL (3.2-5.2); Albumin/Globulin Ratio 1.2 (1-3); BUN/Creatinine Ratio 10.3 (8-20); Calcium 9.4 mg/dL (8.6-10.3); EGFR African American 81.8 (>60); EGFR Non-African American 67.6 (>60); Globulin 3.3 g/dL (2-4); Potassium 3.5 mmol/L (3.5-5.0); Total Bilirubin 0.4 mg/dL (0.2-1.0); Total Protein 7.2 g/dL (6.4-8.9)
[2019-12-12 00:33] LABS: INR 0.95 (0.82-1.09)
[2019-12-12] MEDS ORDERED: Al Hydrox/Mg Hydrox/Simet LIQ* 30 ML UDC PO ONE (00:41)
[2019-12-12] MEDS ORDERED: Lidocaine 2% VISCOUS* 15 ML UDC PO ONE (00:41)
--- NOTE | 2019-12-12 01:59 | ED ---
HPI Chest Pain - HPI Summary HPI Summary: 54-year-old female presents with chest/epigastric pain has been intermittent for the past. She has a history of esophagitis and was suppose to have a follow- up to get a scope but did not make appropriate. She is suppose to be on Omeprazole but has not been taking it due to it causing headache. She denies any shortness breath. No cough. No recent illness. Denies any nausea vomiting. States she also has gallstones. She hasn't tried anything for her symptoms. She is nonsmoker. No recent travel. No pain or swelling in calf muscles. She does have family history of cardiac disease. Has history of high blood pressure and diabetes. - History of Current Complaint Chief Complaint: EDChestPainROMI Time Seen by Provider: 12/12/19 00:03 Hx Last Menstrual Period: hysterectomy 2007 Pain Intensity: 6 - Allergy/Home Medications Allergies/Adverse Reactions: Allergies Allergy/AdvReac Type Severity Reaction Status Date / Time Adhesive Tape Allergy Intermediate Rash Verified 11/21/19 11:42 lisinopril Allergy Coughing Verified 11/21/19 11:42 Home Medications: Home Medications Metoprolol Succinate XL TAB* [Toprol XL TAB*] 50 mg PO BEDTIME 09/08/12 [ History Confirmed 12/12/19] Losartan Potassium [Cozaar] 100 mg PO QAM 09/30/16 [History Confirmed 12/12/19] metFORMIN* [Glucophage 500 MG TAB *] 500 mg PO BID 06/16/17 [History Confirmed 12/12/19] Atorvastatin* [Lipitor 20 MG*] 20 mg PO QPM 08/15/17 [History Confirmed 12/12/19 ] Gabapentin CAP(*) [Neurontin 300 CAP(*)] 300 mg PO BEDTIME 08/10/18 [History Confirmed 12/12/19] Omeprazole 1 tab PO DAILY 04/18/19 [History Confirmed 12/12/19] Fluticasone NASAL SPRAY 50MCG* [Flonase NASAL SPRAY 50MCG*] 2 spray BOTH NARES DAILY 11/21/19 [History Confirmed 12/12/19] PMH/Surg Hx/FS Hx/Imm Hx Endocrine/Hematology History: Reports: Hx Diabetes, Hx Thyroid Disease - Slightly enlarged -goiter Denies: Hx Anticoagulant Therapy, Hx Anemia Cardiovascular History: Reports: Hx Hypertension Denies: Hx Angina, Hx Congestive Heart Failure, Hx Deep Vein Thrombosis, Hx Hypercholesterolemia, Hx Myocardial Infarction, Hx Pacemaker/ICD, Hx Peripheral Vascular Disease Respiratory History: Reports: Hx Sleep Apnea Denies: Hx Asthma, Hx Chronic Obstructive Pulmonary Disease (COPD), Hx Lung Cancer, Hx Pneumonia, Hx Pulmonary Embolism GI History: Reports: Hx Gastroesophageal Reflux Disease - ON MEDS PT. STATES CONTROLLED, Other GI Disorders - DIVERTICULITIS OCCAS CONSTIPATION Denies: Hx Gall Bladder Disease, Hx Gastrointestinal Bleed, Hx Ulcer, Hx Urosepsis History: Denies: Hx Dialysis, Hx Kidney Stones, Hx Renal Disease Musculoskeletal History: Reports: Hx Arthritis - GENERALIZED, Other Musculoskeletal History - LEFT SHOULDEER INJURY Denies: Hx Rheumatoid Arthritis, Hx Osteoporosis, Hx Scoliosis Sensory History: Reports: Hx Contacts or Glasses Denies: Hx Cataracts, Hx Glaucoma, Hx Hearing Aid Opthamlomology History: Reports: Hx Contacts or Glasses Denies: Hx Cataracts, Hx Glaucoma Neurological History: Reports: Hx Nerve Disease - LEFT FOOT UP TO THIGH NEUROPATHY Denies: Hx Dementia, Hx Headaches, Hx Migraine, Hx Seizures, Hx Transient Ischemic Attacks (TIA), Other Neuro Impairments/Disorders Psychiatric History: Reports: Hx Anxiety - occassionally, Hx Depression - No medications. Denies: Hx Panic Disorder, Hx Schizophrenia, Hx Bipolar Disorder - Cancer History Hx Chemotherapy: No Hx Radiation Therapy: No Hx Palliative Cancer Treatment: No - Surgical History Surgery Procedure, Year, and Place: C section x 2 1986,1984, LEFT AND RIGHT Hand Surgery x 2: L ligaments and Rt HAND tendon repair, Gastric Banding 2005 WITH PORT, Hysterectomy 2007. left shoulder CLAVICLE REPAIR 2015, 06/2017 Hx Anesthesia Reactions: No Infectious Disease History: No Infectious Disease History: Denies: Hx Clostridium Difficile, Hx Hepatitis, Hx Human Immunodeficiency Virus (HIV), Hx of Known/Suspected MRSA, Hx Shingles, Hx Tuberculosis, Hx Known/ Suspected VRE, Hx Known/Suspected VRSA, History Other Infectious Disease, Traveled Outside the [place] in Last 30 Days - Family History Known Family History: Positive: Cardiac Disease, Hypertension, Diabetes - Social History Alcohol Use: None Hx Substance Use: No Substance Use Type: Reports: None Substance Use Comment - Amount & Last Used: 16 Hx Tobacco Use: No Smoking Status (MU): Never Smoked Tobacco Type: Cigarettes Length of Time of Smoking/Using Tobacco: SMOKED FOR ~1 MONTH IN THE '90S Have You Smoked in the Last Year: No Review of Systems Negative: Fever Positive: Chest Pain Negative: Shortness Of Breath, Cough Negative: Vomiting All Other Systems Reviewed And Are Negative: Yes Physical Exam Triage Information Reviewed: Yes Vital Signs On Initial Exam: Initial Vitals Temp Pulse Resp BP Pulse Ox 98.1 F 85 20 187/105 98 12/11/19 23:48 12/11/19 23:48 12/11/19 23:48 12/11/19 23:48 12/11/19 23:48 Vital Signs Reviewed: Yes Appearance: Positive: Well-Appearing Skin: Positive: Warm, Dry Head/Face: Positive: Normal Head/Face Inspection Eyes: Positive: Normal, Conjunctiva Clear ENT: Positive: Pharynx normal Respiratory/Lung Sounds: Positive: Clear to Auscultation, Breath Sounds Present , Other - reproducible chest pain lower sternal area Cardiovascular: Positive: Normal, RRR Abdomen Description: Positive: Nontender, Soft Bowel Sounds: Positive: Present Musculoskeletal: Positive: Normal Neurological: Positive: Normal Psychiatric: Positive: Normal Procedures - Sedation Patient Received Moderate/Deep Sedation with Procedure: No Diagnostics - Vital Signs Vital Signs Temp Pulse Resp BP Pulse Ox 12/12/19 01:07 80 23 176/100 98 12/12/19 01:03 76 7 99 12/12/19 00:30 81 20 181/108 99 12/12/19 00:01 87 15 174/95 98 12/12/19 00:00 82 17 98 12/11/19 23:59 86 13 98 12/11/19 23:48 98.1 F 85 20 187/105 98 - Laboratory Lab Results: Lab Results 12/12/19 12/12/19 12/12/19 Range/Units 00:03 00:03 00:03 WBC 9.7 (3.5-10.8) 10^3/uL RBC 4.81 (3.70-4.87) 10^6 /uL Hgb 12.6 (12.0-16.0) g/dL Hct 39 (35-47) % MCV 81 (80-97) fL MCH 26 L (27-31) pg MCHC 32 (31-36) g/dL RDW 14 (10-15) % Plt Count 344 (150-450) 10^3/uL MPV 7.1 L (7.4-10.4) fL Neut % (Auto) 58.5 % Lymph % (Auto) 32.2 % [place] % (Auto) 7.3 % Eos % (Auto) 1.3 % Baso % (Auto) 0.7 % Absolute Neuts (auto) 5.6 (1.5-7.7) 10^3/ul Absolute Lymphs (auto) 3.1 (1.0-4.8) 10^3/ul Absolute Monos (auto) 0.7 (0-0.8) 10^3/ul Absolute Eos (auto) 0.1 (0-0.6) 10^3/ul Absolute Basos (auto) 0.1 (0-0.2) 10^3/ul Absolute Nucleated RBC 0.0 10^3/ul Nucleated RBC % 0.1 INR (Anticoag Therapy) 0.95 (0.82-1.09) Sodium 139 (135-145) mmol/L Potassium 3.5 (3.5-5.0) mmol/L Chloride 104 (101-111) mmol/L Carbon Dioxide 28 (22-32) mmol/L Anion Gap 7 (2-11) mmol/L BUN 9 (6-24) mg/dL Creatinine 0.87 (0.51-0.95) mg/dL Est GFR ( Amer) 81.8 (>60) Est GFR (Non-Af Amer) 67.6 (>60) BUN/Creatinine Ratio 10.3 (8-20) Glucose 143 H (70-100) mg/dL Calcium 9.4 (8.6-10.3) mg/dL Total Bilirubin 0.40 (0.2-1.0) mg/dL AST 16 (13-39) U/L ALT 12 (7-52) U/L Alkaline Phosphatase 100 (34-104) U/L Troponin I 0.00 (<0.03) ng/mL Total Protein 7.2 (6.4-8.9) g/dL Albumin 3.9 (3.2-5.2) g/dL Globulin 3.3 (2-4) g/dL Albumin/Globulin Ratio 1.2 (1-3) Result Diagrams: 12/12/19 00:03 12/12/19 00:03 Lab Statement: Any lab studies that have been ordered have been reviewed, and results considered in the medical decision making process. - Radiology chest Radiology Interpretation Completed By: ED Physician Summary of Radiographic Findings: no active disease - EKG No standard instances Cardiac Rate: NL EKG Rhythm: Sinus Rhythm EKG Comparison: No Significant Change Summary of EKG Findings: sinus rhythm Re-Evaluation - Re-Evaluation First Eval Re-Evaluation Time: 01:58 Change: Improved Comment: chest pain resolved Chest Pain Course/Dx - Course Course Of Treatment: 54-year-old female presents with chest/epigastric pain has been intermittent for the past. She has a history of esophagitis and was suppose to have a follow-up to get a scope but did not make appropriate. She is suppose to be on Omeprazole but has not been taking it due to it causing headache. She denies any shortness breath. No cough. No recent illness. Denies any nausea vomiting. States she also has gallstones. She hasn't tried anything for her symptoms. She is nonsmoker. No recent travel. No pain or swelling in calf muscles. She does have family history of cardiac disease. Has history of high blood pressure and diabetes. On exam has tenderness in lower sternal area/epigastric. White blood count normal. ekg sinus rhythm. Troponin 0. heart score 3. gave GI cocktail and patient's symptoms resolved. symptoms likely GI related. Discussed should take Pepcid twice a day. Told follow up with primary. Patient understands agrees plan. - Chest Pain Differential Diagnosis/HQI/PQRI: Angina, Chest Wall, GI Disease - Diagnoses Provider Diagnoses: Atypical chest pain Discharge ED - Sign-Out/Discharge Documenting (check all that apply): Patient Departure, Sign-Out Patient Signing out patient TO: Delaney Lr - Discharge Plan Condition: Stable Disposition: HOME Patient Education Materials: Epigastric Pain (ED) Referrals: Cat Cotton NP [Primary Care Provider] - Additional Instructions: take pepcid twice a day follow up with primary take tyenlol as needed for pain every 6 hours Return to ED if develop any new or worsening symptoms - Billing Disposition and Condition Condition: STABLE Disposition: Home
[2019-12-12 02:12] LABS: Urine Appearance Clear; Urine Bilirubin Negative (Negative); Urine Blood Negative (Negative); Urine Color Yellow; Urine Glucose Negative (Negative); Urine Ketones Negative (Negative); Urine Nitrite Negative (Negative); Urine Protein Negative (Negative); Urine Specific Gravity 1.014 (1.010-1.030); Urine Urobilinogen Negative (Negative)
--- NOTE | 2019-12-12 02:47 | ED ---
Progress - Progress Note Progress Note: Patient signed out by Radha Olsen at 02:30 on December 12, 2019 pending a repeat troponin and disposition. Second troponin is negative. Patient safe for discharge. Re-Evaluation - Re-Evaluation First Eval Re-Evaluation Time: 01:58 Change: Improved Comment: chest pain resolved Course/Dx - Diagnoses Provider Diagnoses: Atypical chest pain Discharge ED - Sign-Out/Discharge Documenting (check all that apply): Patient Departure - discharge, Receiving Sign-Out Receiving patient FROM: Radha Olsen - Pending a repeat troponin and disposition. - Discharge Plan Condition: Stable Disposition: HOME Patient Education Materials: Epigastric Pain (ED) Referrals: Cat Cotton NP [Primary Care Provider] - Additional Instructions: take pepcid twice a day follow up with primary take tyenlol as needed for pain every 6 hours Return to ED if develop any new or worsening symptoms - Billing Disposition and Condition Condition: STABLE Disposition: Home - Attestation Statements Document Initiated by Scribe: Yes Documenting Scribe: Cathy Mejia Provider For Whom Vipul is Documenting (Include Credential): Delaney Lr MD Scribe Attestation: IMonica Natalie George, scribed for Delaney Lr MD on 12/12/19 at 0448. Scribe Documentation Reviewed: Yes Provider Attestation: The documentation as recorded by the scribe, Cathy Mejia accurately reflects the service I personally performed and the decisions made by , Delaney Lr MD Status of Scribe Document: Viewed Procedures - Sedation Patient Received Moderate/Deep Sedation with Procedure: No
[2019-12-12 03:21] VITALS: BP 163/93
== END 2019-12-12 03:21 | disposition home or self-care (01) ==
LOC: ED 23:38
DX: R07.89 Other chest pain (principal); R10.13 Epigastric pain; I44.4 Left anterior fascicular block; E11.9 Type 2 diabetes mellitus without complications; Z79.84 Long term (current) use of oral hypoglycemic drugs; I10 Essential (primary) hypertension; K21.9 Gastro-esophageal reflux disease without esophagitis; Z79.899 Other long term (current) drug therapy; Z88.8 Allergy status to other drugs, medicaments and biological substances; Z91.048 Other nonmedicinal substance allergy status; Z98.84 Bariatric surgery status; Z87.891 Personal history of nicotine dependence
CPT/HCPCS: 36415; 71045; 80053; 81003; 84484; 85025; 85610; 93005; 99283; A9270-GY